=== PATIENT | male | born 1975 | race Caucasian/White ===

== ENCOUNTER → 2018-01-25 11:02 | Outpatient (CLI) | payer OTHER, SELFPAY ==
--- NOTE | 2018-01-25 | DI.RAD.S_ITS ---
PROCEDURE: XR KNEE LT 3V INDICATIONS: Pain in left knee TECHNIQUE: 3 views of the knee were acquired. COMPARISON: None. FINDINGS: Bones: No fractures or dislocations. No suspicious bony lesions. Soft tissues: Mild to moderate joint effusion. No suspicious soft tissue calcifications. IMPRESSION: Mild to moderate joint effusion. No visualized acute fracture or dislocation. However, if clinical concern and/or pain persist, short interval imaging followup in 7-10 days is recommended, as occult injury cannot be definitively excluded. Dictated by: Susanna Beach M.D. on 01/25/2018 at 13:57 Approved by: Susanna Beach M.D. on 01/25/2018 at 13:58
--- NOTE | 2018-01-25 | DI.RAD.S_ITS ---
PROCEDURE: XR CHEST 2V INDICATIONS: shortness of breath TECHNIQUE: 2 views of the chest were acquired. COMPARISON: None. FINDINGS: Surgical changes and devices: None. Lungs and pleura: No pleural effusions or pneumothorax. Lungs are clear. Mediastinum: Mediastinal contours are normal. Heart size is normal. Bones and chest wall: No suspicious bony abnormalities. Soft tissues appear unremarkable. IMPRESSION: No acute pulmonary process. Dictated by: Susanna Beach M.D. on 01/25/2018 at 13:56 Approved by: Susanna Beach M.D. on 01/25/2018 at 13:57
== END ==
PROVIDERS: PCP Family Medicine; Visit Provider Family Medicine
DX: R06.02 Shortness of breath (principal); M25.562 Pain in left knee; M25.462 Effusion, left knee
CPT/HCPCS: 71046; 73562

== ENCOUNTER → 2018-05-12 14:59 | Outpatient (CLI) | payer OTHER, SELFPAY ==
--- NOTE | 2018-05-18 08:08 | PM.PFT.1 ---
Pulmonary Function Test Referral & Results Date Patient Seen: 05/12/18 Requesting provider: Bradley Martinez Indication: Dyspnea upon exertion Results: The spirometry demonstrates an FVC of 3.74 L which is 72% of predicted. The FEV1 was measured at 2.96 L which is 72% of predicted. The FEV1/FVC ratio was 79 which is 99% of predicted. Following the administration of bronchodilator there was a 17% improvement in FEV1 and 65% improvement in FEF 25-75%. Lung volumes show an SVC of 3.83 L which is 76% of predicted. The diffusing capacity was measured at 29.77 which is 92% of predicted. The maximum voluntary ventilation was reduced Interpretation: This study demonstrates mild obstructive lung disease based on reduction in FEV1. There is evidence of significant benefit following bronchodilator based on improvement in FEV1 and FEF 25-75% as above. There is mild reduction in lung volumes suggesting mild restrictive lung disease Clinical correlation suggested
== END ==
PROVIDERS: PCP Family Medicine; Visit Provider Internal Medicine
DX: R06.09 Other forms of dyspnea (principal)
CPT/HCPCS: 94060; 94726; 94729

== ENCOUNTER → 2018-05-15 17:30 | Outpatient (CLI) | payer OTHER, SELFPAY ==
--- NOTE | 2018-05-15 17:32 | DI.MRI.S_ITS ---
PROCEDURE: MR KNEE LT WO CON INDICATIONS: LEFT KNEE PAIN TECHNIQUE: Noncontrast sagittal PD fast spin echo and T2 fast spin echo with fat saturation, sagittal 3-D FLASH with fat saturation; coronal T1 spin echo and PD fast spin echo with fat saturation, and axial PD fast spin echo with fat saturation through the knee. COMPARISON: [facility], CR, XR KNEE LT 3V, 01/25/2018, 11:27. FINDINGS: Image quality: Excellent. Menisci: Linear high signal intensity horizontally traverses the posterior horn medial meniscus, demonstrating inferior articular surface extension. There is radial tearing of the free edge of the medial meniscal body. Lateral meniscus is intact. Cruciate ligaments: The anterior and posterior cruciate ligaments appear intact. Medial structures: The medial collateral ligament appears intact. Visualized portions of the pes anserinus tendons appear normal. No abnormal bursal fluid. Lateral structures: The lateral collateral ligament, long and short heads of the biceps femoris tendon appear intact. The popliteus tendon appears normal. Iliotibial band appears normal. Anterior structures: The quadriceps and patellar tendons appear intact. There is mild T2 signal elevation within the patellar tendon at the patellar origin. Patellar alignment is normal. No femoral trochlear dysplasia or ventral trochlear prominence. No edema in the infrapatellar fat pad. Bones and cartilage: No bone marrow contusions or fractures. There is mild articular cartilage fibrillation overlying the patellar apex. Mild diffuse articular cartilage loss overlies the weightbearing aspects of the medial femoral condyle and medial tibial plateau. Joint space: There is physiologic knee joint fluid. No Dominguez's cyst. Normal appearing synovial plicae are incidentally noted. IMPRESSION: 1. Medial meniscal tear. 2. Medial and patellofemoral compartment articular cartilage loss. 3. Mild patellar tendinitis. Dictated by: Laurel Adan M.D. on 05/16/2018 at 8:41 Approved by: Laurel Adan M.D. on 05/16/2018 at 8:46
== END ==
PROVIDERS: PCP Family Medicine; Visit Provider Family Medicine
DX: M25.562 Pain in left knee (principal); S83.242A Other tear of medial meniscus, current injury, left knee, initial encounter; M76.52 Patellar tendinitis, left knee
CPT/HCPCS: 73721

== ENCOUNTER → 2018-07-18 13:37 | Outpatient (CLI) | payer OTHER, SELFPAY ==
--- NOTE | 2018-07-18 | DI.CT.S_ITS ---
PROCEDURE: CT CHEST WO CON INDICATIONS: DYSPNEA ON EXERTION. TECHNIQUE: Noncontrast 5 mm thick sections acquired from the pulmonary apices to the posterior costophrenic angles. 7 mm thick coronal and sagittal MIP reformats were then acquired. For radiation dose reduction, the following was used: automated exposure control, adjustment of mA and/or kV according to patient size. COMPARISON: None. FINDINGS: Image quality: Excellent. Lungs and pleura: No acute air space opacities. No pleural effusions or pneumothorax. Central and peripheral airways are patent and normal in caliber. Mediastinum: Heart size is normal. No pericardial effusion. No mediastinal adenopathy by size criteria. Thoracic aorta and central pulmonary arteries are normal in size. Esophagus is normal in caliber. No hiatal hernia. Bones and chest wall: No suspicious bony lesions. No vertebral body compression fractures. No axillary or supraclavicular adenopathy by size criteria. Thyroid gland appears normal. Abdomen: Visualized upper abdominal solid organs and bowel loops appear normal in the absence of contrast. IMPRESSION: Normal for age, source of current dyspnea on exertion symptoms is not seen. Dictated by: Alan Canchola M.D. on 07/18/2018 at 15:59 Approved by: Alan Canchola M.D. on 07/18/2018 at 16:00
== END ==
PROVIDERS: PCP Family Medicine; Visit Provider Internal Medicine
DX: R06.09 Other forms of dyspnea (principal)
CPT/HCPCS: 71250

== ENCOUNTER → 2018-09-07 08:54 | Outpatient (CLI) | payer OTHER, SELFPAY ==
--- NOTE | 2018-09-07 10:16 | P.PCN_ITS ---
Cardiac Stress Test Report Referral & Results Date Patient Seen: 09/07/18 Requesting provider: Bradley Martinez Indication: Preop Rest ECG: Unremarkable Procedure Note: After both written and verbal informed consent the patient had an IV started by the diagnostic imaging RN and then was hooked up to the treadmill monitoring system. The patient was placed on the treadmill at 1 mile an hour with no elevation and was then injected with the Barb scan material. The Cardiolite was then immediately administered. The patient spent an additional 2-3 minutes on the treadmill before being returned to the [facility] in the supine position. The patient had a normal response to all infused materials. Impression: Normal response to materials infused as above Please see perfusion imaging report for details regarding possible ischemia Please note: Actual ECG tracings can be found in the PACS system.
--- NOTE | 2018-09-11 15:49 | DI.NM.S_ITS ---
DATE OF SERVICE: STUDY TYPE: Two-day pharmaceutical nuclear stress test. RADIOISOTOPES: 26.2 mCi Tc-99m used on rest day and 25.5 mCi of Tc-99m used as a stress dose on stress test day. CLINICAL HISTORY: The patient is getting this stress test to evaluate dyspnea on exertion. SYMPTOMS: No angina during the study. ECG: Normal sinus rhythm with no ST-T changes addressed. No ischemic changes with Lexiscan. No ectopy during the study. PERFUSION IMAGES: No perfusion evidence of ischemia or infarction based on supine and prone images at stress and supine at rest. GATED IMAGES: Normal left ventricular size, wall motion, and systolic function (post-stress EF 69%). No transient ischemic dilatation (TID ratio 1.08). Lung- to-heart ratio is 0.34, normal. SUMMARY: Low-risk, normal pharmaceutical nuclear perfusion stress test. 1. No perfusion evidence of ischemia or infarction. 2. Normal left ventricular size, wall motion, and systolic function (post- stress EF 69%). 3. No ECG evidence of ischemia. 4. No angina during the study. 5. No prior nuclear stress test available for comparison. Ricco Figueroa - GAURAV/fn/ts doc#: [id number]/job#: [id number] dd: 09/08/2018 12:59:00 dt: 09/09/2018 06:47:00 DICTATING /COPIES TO: Ann Yeboah MD COPIES MNE: AYANA
== END ==
PROVIDERS: Visit Provider Internal Medicine
DX: R06.09 Other forms of dyspnea (principal)
CPT/HCPCS: 78452; 93016; 93017; 93018; A9502; J2785

== ENCOUNTER → 2019-09-20 12:04 | Outpatient (CLI) | payer OTHER, MEDICAID, SELFPAY ==
[2019-09-20 13:53] LABS: BUN Creatinine Ratio 21.3 (6-22); Blood Urea Nitrogen 20 mg/dL (9-20); Carbon Dioxide 29 mmol/L (22-32); Chloride 105 mmol/L (98-107); Estimated Glomerular Filt Rate > 60.0 mL/min (>60); Glucose 102 mg/dL (70-100); HEMOLYSIS < 15 (0-50); Potassium 4.1 mmol/L (3.4-5.1); Sodium 140 mmol/L (137-145)
[2019-09-20 14:11] LABS: Free T3, Triiodothyronine Free 3.32 pg/mL (2.77-5.27); Free T4, Direct Thyroxine 1.79 ng/dL (0.78-2.19)
[2019-09-21 18:07] LABS: Anti Thyroglobulin Antibody 134.3 IU/mL (0.0-0.9); Thyroid Peroxidase Antibodies 378 IU/mL (0-34)
== END ==
PROVIDERS: PCP Student in an Organized Health Care Education/Training Program; Referring Provider Student in an Organized Health Care Education/Training Program; Visit Provider Student in an Organized Health Care Education/Training Program
DX: E03.9 Hypothyroidism, unspecified (principal); I10 Essential (primary) hypertension
CPT/HCPCS: 36415; 80048; 84439; 84443; 84481; 86376; 86800

== ENCOUNTER → 2019-09-25 15:00 | Outpatient (CLI) | payer OTHER, MEDICAID, SELFPAY ==
--- NOTE | 2019-09-25 15:01 | DI.CT.S_ITS ---
PROCEDURE: CT CHEST HIGH RESOLUTION INDICATIONS: Restrictive lung disease TECHNIQUE: Noncontrast 1.0 and 5.0 mm thick contiguous axial sections from the pulmonary apex to the posterior costophrenic angles, with 7 mm thick coronal and sagittal MIP reformats. 1 mm thick dynamic expiratory images acquired through the upper, mid, and lower lungs. 1.0 mm thick axial sections acquired from the cristin to the posterior costophrenic angles in the prone end-inspiration position. For radiation dose reduction, the following was used: automated exposure control, adjustment of mA and/or kV according to patient size. COMPARISON: None. FINDINGS: Image quality: Excellent. Lungs: No evidence of pneumonitis or fibrosis. There is currently no sign of chronic bronchitis or bronchiectasis. Pleura: No pleural effusions or pneumothorax. Mediastinum: Heart size is normal. No pericardial effusion. Thoracic aorta and central pulmonary arteries are normal in size. Esophagus is normal in caliber. Bones and chest wall: No suspicious bony lesions. No vertebral body compression fractures. Abdomen: Visualized upper abdominal solid organs and bowel loops appear normal. IMPRESSION: Normal examination, source of reported restrictive lung disease is not found. Dictated by: Alan Canchola M.D. on 09/25/2019 at 18:08 Approved by: Alan Canchola M.D. on 09/25/2019 at 18:09
== END ==
PROVIDERS: PCP Student in an Organized Health Care Education/Training Program; Referring Provider Student in an Organized Health Care Education/Training Program; Visit Provider Student in an Organized Health Care Education/Training Program
DX: J98.4 Other disorders of lung (principal)
CPT/HCPCS: 71250

== ENCOUNTER → 2019-10-31 11:17 | Outpatient (CLI) | payer OTHER, MEDICAID, SELFPAY ==
[2019-11-01 09:41] LABS: Mumps Virus IgG Antibody 37.7 AU/mL (Immune >10.9); Rubeola Measles IgG > 300.0 AU/mL (Immune >16.4); Varicella IgG Antibody 2300 index (Immune >165)
== END ==
PROVIDERS: PCP Student in an Organized Health Care Education/Training Program; Referring Provider Student in an Organized Health Care Education/Training Program; Visit Provider Student in an Organized Health Care Education/Training Program
DX: Z02.1 Encounter for pre-employment examination (principal)
CPT/HCPCS: 36415; 86615; 86735; 86762; 86765; 86787

== ENCOUNTER → 2020-07-16 14:28 | Outpatient (CLI) | payer OTHER, MEDICAID, SELFPAY ==
[2020-07-16 15:34] LABS: COVID19 -Nasal RAPID Negative (Negative)
== END ==
PROVIDERS: PCP Student in an Organized Health Care Education/Training Program; Visit Provider Family Medicine
DX: R11.0 Nausea (principal); R11.10 Vomiting, unspecified; R53.83 Other fatigue; Z20.822 Contact with and (suspected) exposure to COVID-19
CPT/HCPCS: 87635

== ENCOUNTER → 2020-10-09 13:45 | Outpatient (CLI) | payer OTHER, MEDICAID, SELFPAY ==
[2020-10-09 14:48] LABS: BUN Creatinine Ratio 17.5 (6-22); Blood Urea Nitrogen 14 mg/dL (9-20); Calcium 9.5 mg/dL (8.4-10.2); Carbon Dioxide 28 mmol/L (22-32); Chloride 106 mmol/L (98-107); Estimated Glomerular Filt Rate > 60.0 mL/min (>60); Glucose 86 mg/dL (70-100); HEMOLYSIS 18 (0-50); Sodium 140 mmol/L (137-145)
[2020-10-09 14:49] LABS: Potassium 3.8 mmol/L (3.4-5.1)
[2020-10-09 15:20] LABS: TSH w/ Reflex to FT4 1.94 uIU/mL (0.47-4.68)
== END ==
PROVIDERS: PCP Student in an Organized Health Care Education/Training Program; Referring Provider Student in an Organized Health Care Education/Training Program; Visit Provider Student in an Organized Health Care Education/Training Program
DX: E06.3 Autoimmune thyroiditis (principal); I10 Essential (primary) hypertension
CPT/HCPCS: 36415; 80048; 84443

== ENCOUNTER → 2021-05-05 14:10 | Outpatient (CLI) | payer OTHER, MEDICAID, SELFPAY ==
[2021-05-05 16:28] LABS: BUN Creatinine Ratio 14.7 (6-22); Blood Urea Nitrogen 17 mg/dL (9-20); Calcium 9.1 mg/dL (8.4-10.2); Carbon Dioxide 31 mmol/L (22-32); Chloride 100 mmol/L (98-107); Estimated Glomerular Filt Rate > 60.0 mL/min (>60); Glucose 82 mg/dL (70-100); HEMOLYSIS < 15 (0-50); Potassium 4.1 mmol/L (3.4-5.1); Sodium 135 mmol/L (137-145)
[2021-05-05 16:59] LABS: TSH w/ Reflex to FT4 4.87 uIU/mL (0.47-4.68)
[2021-05-05 17:57] LABS: Free T4, Direct Thyroxine 1.94 ng/dL (0.78-2.19)
== END ==
PROVIDERS: PCP Student in an Organized Health Care Education/Training Program; Referring Provider Student in an Organized Health Care Education/Training Program; Visit Provider Student in an Organized Health Care Education/Training Program
DX: I10 Essential (primary) hypertension (principal); E06.3 Autoimmune thyroiditis; F43.22 Adjustment disorder with anxiety
CPT/HCPCS: 36415; 80048; 84439; 84443

== ENCOUNTER → 2021-06-08 08:52 | Outpatient (CLI) | payer OTHER, MEDICAID, SELFPAY ==
--- NOTE | 2021-06-08 08:54 | DI.CT.S_ITS ---
PROCEDURE: CT HEAD/BRAIN WO CON INDICATIONS: Post-concussive headache TECHNIQUE: Noncontrast 4.5 mm thick angled axial sections acquired from the foramen magnum to the vertex, with coronal and sagittal reformats. For radiation dose reduction, the following was used: automated exposure control, adjustment of mA and/or kV according to patient size. COMPARISON: None. FINDINGS: Image quality: Excellent. CSF spaces: Basal cisterns are patent. No extra-axial fluid collections. Ventricles are normal in size and shape. Brain: No midline shift. No intracranial masses or hemorrhage. Sams-white matter interface is normal. Skull and face: Calvarium and visualized facial bones are intact, without suspicious lesions. Sinuses: Visualized sinuses and mastoids are clear. IMPRESSION: No acute intracranial disease process. Dictated by: Katina Alberto MD, PhD on 06/08/2021 at 9:20 Approved by: Katina Alberto MD, PhD on 06/08/2021 at 9:21
== END ==
PROVIDERS: PCP Student in an Organized Health Care Education/Training Program; Referring Provider Student in an Organized Health Care Education/Training Program; Visit Provider Student in an Organized Health Care Education/Training Program
DX: F07.81 Postconcussional syndrome (principal)
CPT/HCPCS: 70450

== ENCOUNTER → 2021-07-15 09:38 | Outpatient (CLI) | payer OTHER, MEDICAID, SELFPAY ==
[2021-07-15 11:04] LABS: COVID19 -Nasal RAPID Negative (Negative)
== END ==
PROVIDERS: PCP Student in an Organized Health Care Education/Training Program; Visit Provider Surgery
DX: Z20.822 Contact with and (suspected) exposure to COVID-19 (principal); Z01.812 Encounter for preprocedural laboratory examination
CPT/HCPCS: 87635; C9803

== ENCOUNTER 2021-07-16 09:55 | Day surgery (SDC) | payer OTHER, MEDICAID, SELFPAY ==
[2021-07-16] VITALS (9 sets, daily range): BP systolic 118–140; BP diastolic 78–95; PULSE 59–76; RESP 12–16; TEMP 36.1–36.6; O2SAT 97–99; BMI 29.0
--- NOTE | 2021-07-16 | PATH_ITS ---
[facility] Accession Number: [id number] . 01 Material submitted: . PART A: cecum - CECAL PART B: colon - ASCENDING PART C: sigmoid colon - SIGMOID . 01 Diagnosis: A. Cecum, Biopsy: Tubular adenoma. . B. Ascending Colon, Biopsy: Tubular adenoma. . C. Sigmoid Colon, Biopsy: Hyperplastic polyp, two fragments. MRV 07/21/2021 1332 Local . 01 Electronically signed: . Mag Garcia MD, Pathologist NPI- [id number] . 01 Gross description: . Part A: CECAL: Received in formalin are multiple fragment(s) of allen, soft tissue measuring 0.6 x 0.2 x 0.1 cm in aggregate submitted entirely in 1 cassette(s) Part B: ASCENDING: Received in formalin is 1 fragment(s) of allen, soft tissue measuring 0.5 x 0.4 x 0.2 cm submitted entirely in 1 cassette(s) Part C: SIGMOID: Received in formalin are 2 fragment(s) of allen, soft tissue measuring 0.3 x 0.3 x 0.3 cm to 0.2 x 0.2 x 0.2 cm submitted entirely in 1 cassette(s) /CPE 07/18/2021 0302 Local . 01 Pathologist provided ICD-10: D12.0, D12.2 . 01 CPT . 669725, 436505, 412458 Specimen Comment: A courtesy copy of this report has been sent to [phone] Performed at: 01 [facility] [address] [place] [address] [address] [facility], [place], [place] [id number] MD Axel Porter MD Phone: [phone]
[2021-07-16] MEDS: LACTATED RINGERS 1,000 ML 42 ML IV (10:25)
--- NOTE | 2021-07-16 11:04 | PM.HP.1 ---
History of Present Illness History of Present Illness Date Patient Seen: 07/16/21 Time Patient Seen: 11:04 Chief complaint: SDC Narrative: Ricco is a 38-year-old man who has never had a colonoscopy. He is here for colon cancer screening Patient History Family & Social History Social History: household members spouse Tobacco & Substance use: Smoking Status Never smoker alcohol intake current alcohol intake frequency a few times a week Substance Use Type marijuana Meds Home Medications and Allergies Home Medications Medication Instructions Recorded Confirmed Type albuterol sulfate 90 mcg/actuation 2 puff INHALATION Q6H 09/20/19 07/16/21 History aerosol inhaler sildenafil 100 mg tablet (Viagra) 100 mg PO DAILY 09/20/19 07/16/21 History albuterol sulfate 2.5 mg (3 mL) INHALATION Q4-6H PRN 11/19/19 07/16/21 Rx #180 ml budesonide 0.5 mg/2 mL suspension 0.5 mg (2 mL) INHALATION BID #60 ml 11/19/19 07/16/21 Rx for nebulization verapamil 360 mg 24 hr 360 mg PO DAILY #90 cap 07/09/20 07/16/21 Rx capsule,extended release budesonide-formoterol HFA 160 2 puff INHALATION BID #30.6 g 08/13/20 07/16/21 Rx mcg-4.5 mcg/actuation aerosol inhaler (Symbicort) levothyroxine 175 mcg tablet 175 mcg PO DAILY #90 tab 10/20/20 07/16/21 Rx benazepril 40 mg tablet 40 mg PO DAILY #90 tab 01/14/21 07/16/21 Rx montelukast 10 mg tablet 10 mg PO BEDTIME #90 tab 01/14/21 07/16/21 Rx diazepam 5 mg tablet 5 mg PO DAILY #14 tab 04/27/21 07/16/21 Rx tiotropium bromide 2.5 2 puff INHALATION BEDTIME #4 g 05/14/21 07/16/21 Rx mcg/actuation mist for inhalation (Spiriva Respimat) peg 3350-electrolytes 236 240 ml PO Q10M #4000 ml 07/06/21 Rx gram-22.74 gram-6.74 gram-5.86 gram solution (Golytely) potassium 1 tab PO DAILY 07/16/21 07/16/21 History Allergies Allergy/AdvReac Type Severity Reaction Status Date / Time No Known Drug Allergies Allergy Unverified 05/12/21 09:08 Exam Vital Signs (past 8 hours): - 07/16/21 10:11 Temperature 97.5 F L Pulse Rate 65 Respiratory Rate 16 Blood Pressure 133/93 H Pulse Oximetry 99 Oxygen Delivery Method Room Air Const General: healthy appearing Resp Effort & Inspection: normal respiratory effort Assessment & Plan Assessment and plan (1) Colon cancer screening: Status: Acute Plan Risks, benefits and rationale for colonoscopy reviewed. He would like to proceed. COVID-19 COVID-19 status: Negative Result date/Date tested (Pos, Neg/Pending): 07/15/21 Time Spent With Patient Critical Care time: I spent a total of [] minutes of critical care time on this patient's care today; this time is exclusive of procedural time.
[2021-07-16] MEDS: fentaNYL 250 MCG/5 ML INJ 100 MCG IV (11:19)
[2021-07-16] MEDS: MIDAZOLAM 5 MG/5 ML VIAL 4 MG IV (11:20)
--- NOTE | 2021-07-16 11:32 | PM.OP.COLON ---
Operative Date/Time/Diagnoses Date of procedure: 07/16/21 Time of procedure: 11:32 Pre-op diagnosis: Colon cancer screening Post-op diagnosis: same Procedure & Clinicians Study performed: Colonoscopy Same procedure as scheduled: Yes Surgeon: Riki Melgar Procedure Notes Procedure in detail: Surgeon: Riki Melgar MD Procedure: The patient was brought to the endoscopy suite, placed in left lateral decubitus position. The patient was connected to monitoring devices. A time-out was performed. Sedation was administered. Once the patient was adequately sedated, a digital rectal exam was performed and was normal. The scope was then inserted and advanced to the cecum where the appendiceal orifice was identified and photographed. The scope was then slowly withdrawn over greater than 6 minutes. Mucosa was thoroughly inspected. There was a 6-7 mm polyp in the cecum removed with a cold snare. There was a small roughly 5 mm polyp in the ascending colon removed with cold forceps. There was a small roughly 5 mm polyp in the sigmoid colon removed with forceps. The scope was retroflexed in the rectum. There were some internal hemorrhoids but the distal rectum was otherwise normal. The scope was straightened and removed. The patient was awakened and brought to recovery. Versed: 5 mg Fentanyl: 125 mcg EBL: 5 mL Findings: 6 mm polyp in the cecum, 5 mm polyp in the ascending colon, 5 mm polyp in the sigmoid colon. Scope withdrawal time: 15 Sedation minutes: 12 Post-procedure Recommendations: Will call with biopsy results Disposition: PACU
== END 2021-07-16 12:20 | disposition home or self-care (01) ==
PROVIDERS: PCP Student in an Organized Health Care Education/Training Program; Referring Provider Surgery; Visit Provider Surgery
PROC: 0DJD8ZZ Inspection of Lower Intestinal Tract, Via Natural or Artificial Opening Endoscopic (ICD-10-PCS; CPT 45378; principal; 2021-07-16 10:45)
DX: Z12.11 Encounter for screening for malignant neoplasm of colon (principal); D12.0 Benign neoplasm of cecum; D12.2 Benign neoplasm of ascending colon
CPT/HCPCS: 45385; 45380; 99152; J2250; J3010

== ENCOUNTER 2021-11-06 10:07 | Emergency (ER) | payer OTHER, MEDICAID, SELFPAY ==
[2021-11-06 10:22] VITALS: BP 171/99; PULSE 69; RESP 19; TEMP 36.9; O2SAT 99; BMI 29.3
--- NOTE | 2021-11-06 10:26 | DI.RAD.S_ITS ---
PROCEDURE: XR CHEST 2V INDICATIONS: cough TECHNIQUE: 2 views of the chest were acquired. COMPARISON: CT, CT CHEST HIGH RESOLUTION, 09/25/2019, 15:01. [facility], CR, XR CHEST 2V, 01/25/2018, 11:27. FINDINGS: Surgical changes and devices: None. Lungs and pleura: No consolidation. No pleural effusions or pneumothorax. Mediastinum: Mediastinal contours are normal. Heart size is normal. Bones and chest wall: No suspicious bony abnormalities. Soft tissues appear unremarkable. IMPRESSION: No consolidation to suggest pneumonia. Dictated by: Zi Be M.D. on 11/06/2021 at 10:42 Approved by: Zi Be M.D. on 11/06/2021 at 10:45
--- NOTE | 2021-11-06 11:04 | ED.GENADULT ---
HPI - General Adult General Chief complaint: Shortness of Breath/Dyspnea Stated complaint: sent from [facility], worsening SOB from smoke Time Seen by Provider: 11/06/21 10:29 Source: patient Mode of arrival: Family Vehicle History of Present Illness HPI narrative: 38-year-old male. History of asthma. For the past several days secondary to the smoke that has been in the air he has had coughing and shortness of breath. No fevers. He has been doing his inhalers at home. He also has steroids at home. He is currently on 60 mg of prednisone. This is being directed by his primary doctor. He thought that this morning things were getting somewhat worsening went to the walk-in clinic. He then came to the emergency department for further evaluation. Related Data Home Medications Medication Instructions Recorded Confirmed albuterol sulfate 90 mcg/actuation 2 puff inhalation Q6H 09/20/19 07/16/21 aerosol inhaler sildenafil 100 mg tablet (Viagra) 100 mg PO DAILY 09/20/19 07/16/21 potassium 1 tab PO DAILY 07/16/21 07/16/21 Previous Rx's Medication Instructions Recorded albuterol sulfate 2.5 mg/3 mL 2.5 mg (3 mL) inhalation Q4-6H PRN 11/19/19 (0.083 %) solution for nebulization shortness of breath or wheezing #180 mL budesonide 0.5 mg/2 mL suspension 0.5 mg (2 mL) inhalation BID #60 mL 11/19/19 for nebulization budesonide-formoterol HFA 160 2 puff inhalation BID #30.6 grams 08/13/20 mcg-4.5 mcg/actuation aerosol inhaler (Symbicort) benazepril 40 mg tablet 40 mg PO DAILY #90 tabs 01/14/21 montelukast 10 mg tablet 10 mg PO BEDTIME #90 tabs 01/14/21 diazepam 5 mg tablet 5 mg PO DAILY anxiety #14 tabs 04/27/21 tiotropium bromide 2.5 2 puff inhalation BEDTIME #4 grams 05/14/21 mcg/actuation mist for inhalation (Spiriva Respimat) peg 3350-electrolytes 236 240 ml PO Q10M #4,000 mL 07/06/21 gram-22.74 gram-6.74 gram-5.86 gram solution (Golytely) verapamil 360 mg 24 hr 360 mg PO DAILY #90 caps 07/27/21 capsule,extended release levothyroxine 175 mcg tablet 175 mcg PO DAILY #90 tabs 10/26/21 prednisone 20 mg tablet 60 mg PO DAILY #50 tabs 11/03/21 Allergies Allergy/AdvReac Type Severity Reaction Status Date / Time No Known Drug Allergies Allergy Verified 11/06/21 10:26 Review of Systems Constitutional Constitutional: Reports system reviewed and no additional complaints, except as documented Cardiovascular Cardiovascular: Reports system reviewed and no additional complaints, except as documented Respiratory Respiratory: Reports system reviewed and no additional complaints, except as documented Integumentary/Breasts Skin/Breast: Reports system reviewed and no additional complaints, except as documented Hematologic/Lymphatic On Anticoagulants: No Patient History Medical History Asthma Social History household members: spouse Smoking Status: Never smoker alcohol intake: current Smoking Status: Never smoker alcohol intake frequency: a few times a week Substance Use Type: marijuana Exam Initial Vital Signs Initial Vital Signs: Vital Signs Temperature 98.5 F 11/06/21 10:22 Pulse Rate 69 11/06/21 10:22 Respiratory Rate 19 11/06/21 10:22 Blood Pressure 171/99 H 11/06/21 10:22 Pulse Oximetry 99 11/06/21 10:22 Oxygen Delivery Method 11/06/21 10:22 Resp Effort & Inspection: normal respiratory effort Auscultation: clear to auscultation bilaterally Cardio Rate: regular rate Rhythm: regular rhythm Extrem General: normal to inspection Course Orders Ordered: ED Orders 11/06/21 10:26 XR chest 2V Stat Vital Signs Vital signs: Vital Signs - 8 hr 11/06/21 10:22 Temperature 98.5 F Pulse Rate 69 Respiratory Rate 19 Blood Pressure 171/99 H Pulse Oximetry 99 Oxygen Delivery Method Room Air Medical Decision Making Imaging Data Chest x-ray: Radiologist's Impression: [address] [address] XRay Report Signed Patient: Ricco Figueroa MR#: [id number] : 1975 Acct:[id number] Age/Sex: 46 / M Date of Service: 11/06/21 Loc: ED Accession Number: [id number] ?? Procedure: XR chest 2V Ordering Provider: Dean Marrufo D.O. PROCEDURE:? XR CHEST 2V ? INDICATIONS:? cough ? TECHNIQUE:? 2 views of the chest were acquired.? ? COMPARISON:? CT, CT CHEST HIGH RESOLUTION, 09/25/2019, 15:01.? [facility], CR, XR CHEST 2V, 01/25/2018, 11:27. ? FINDINGS:? ? Surgical changes and devices:? None.? ? Lungs and pleura:? No consolidation.? No pleural effusions or pneumothorax.? ? Mediastinum:? Mediastinal contours are normal.? Heart size is normal.? ? Bones and chest wall:? No suspicious bony abnormalities.? Soft tissues appear unremarkable.? ? IMPRESSION:? No consolidation to suggest pneumonia. ? ? Dictated by: Zi Be M.D. on 11/06/2021 at 10:42 ? ? Approved by: Zi Be M.D. on 11/06/2021 at 10:45?? MDM Narrative Medical decision making narrative: Lungs are clear, chest x-ray is unremarkable, no signs of pneumonia. No indication for antibiotics. He is currently on steroids. He is nebulizers and inhalers at home. Will have him continue all of these medications as they are being managed by his primary provider. He was given return precautions. He expressed understanding and agreement. Discharge Plan Departure Patient Disposition: Home Clinical Impression: Cough Instructions: DI for Cough -- Adult Activity Restrictions/Additional Instructions: I do recommend that you continue with the steroids under the direction of your primary doctor. You can also use your inhalers and nebulizers at home. Contact your primary doctor for follow-up. Return to the emergency department for any new or worsening symptoms. Prescriptions: No Action budesonide-formoterol [Symbicort] 160-4.5 mcg/actuation HFA aerosol inhaler 2 puff INHALATION BID Qty: 30.6 3RF benazepril 40 mg tablet 40 mg PO DAILY Qty: 90 2RF montelukast 10 mg tablet 10 mg PO BEDTIME Qty: 90 3RF Spiriva Respimat 2.5 mcg/actuation mist 2 puff INHALATION BEDTIME Qty: 4 11RF peg 3350-electrolytes [Golytely] 236-22.74-6.74 -5.86 gram recon soln 240 ml PO Q10M Qty: 4000 0RF Rx Instructions: Take as directed by Physician verapamil 360 mg capsule,ext rel. pellets 24 hr 360 mg PO DAILY Qty: 90 2RF levothyroxine 175 mcg tablet 175 mcg PO DAILY Qty: 90 1RF prednisone 20 mg tablet 60 mg PO DAILY Qty: 50 0RF Rx Instructions: Take 60mg of prednisone daily until feeling 20-25% better. Call office at that time for taper instructions. albuterol sulfate 2.5 mg /3 mL (0.083 %) solution for nebulization 2.5 mg INHALATION Q4-6H PRN (Reason: shortness of breath or wheezing) Qty: 180 11RF budesonide 0.5 mg/2 mL suspension for nebulization 0.5 mg INHALATION BID Qty: 60 11RF diazepam 5 mg tablet 5 mg PO DAILY Qty: 14 0RF sildenafil [Viagra] 100 mg tablet 100 mg PO DAILY Rx Instructions: administer 30 minutes to 4 hours before activity albuterol sulfate 90 mcg/actuation HFA aerosol inhaler 2 puff INHALATION Q6H potassium 1 tab PO DAILY Referrals: Modesto Arenas MD [Primary Care Provider] -
== END 2021-11-06 11:23 | disposition home or self-care (01) ==
PROVIDERS: Emergency Provider Emergency Medicine; PCP Student in an Organized Health Care Education/Training Program
DX: R05.9 Cough, unspecified (principal); R06.02 Shortness of breath
CPT/HCPCS: 71046; 99283

== ENCOUNTER → 2022-09-17 13:46 | Outpatient (CLI) | payer OTHER, MEDICAID, SELFPAY ==
[2022-09-17 14:11] LABS: Add Manual Diff / Slide Review NO; Basophils Absolute Auto 100 /uL (0-100); Basophils Percent Auto 1.2 % (0-2); Eosinophils Absolute Auto 100 /uL (0-450); Hemoglobin 16.5 g/dL (13.5-17.5); Lymphocytes Absolute Auto 1300 /uL (1100-4500); Lymphocytes Percent Auto 16.6 % (25-40); Mean Corpuscular Hemoglobin 30.2 PG (26-34); Mean Corpuscular Volume 86.1 fL (80-100); Monocytes Absolute Auto 600 /uL (0-900); Monocytes Percent Auto 8.5 % (3-14); Neutrophils Absolute Auto 5500 /uL (1500-7000); Neutrophils Percent Auto 72.7 % (50-75); Platelet Count 209 X10^3/uL (150-400); Red Blood Cell Count 5.46 X10^6/uL (4.5-5.9); Red Cell Distribution Width 13.3 % (11.6-14.8); White Blood Cell Count 7.5 X10^3/uL (4.5-11.0)
[2022-09-17 14:43] LABS: Erythrocyte Sedimentation Rate 3 MM/HR (0-15)
[2022-09-17 14:47] LABS: Alanine Aminotransferase 44 IU/L (<50); Albumin 4.4 g/dL (3.5-5.0); Albumin Globulin Ratio 1.4 (1.0-2.8); Alkaline Phosphatase 88 U/L (38-126); Aspartate Aminotransferase 31 IU/L (17-59); Bilirubin Total 0.6 mg/dL (0.2-1.3); Blood Urea Nitrogen 10 mg/dL (9-20); Calcium 9.2 mg/dL (8.4-10.2); Carbon Dioxide 31 mmol/L (22-32); Chloride 102 mmol/L (98-107); Estimated Glomerular Filt Rate > 60 mL/min (>60); Globulin 3.2 g/dL (1.7-4.1); Glucose 94 mg/dL (70-100); HEMOLYSIS < 15 (0-50); Potassium 3.9 mmol/L (3.4-5.1); Sodium 139 mmol/L (137-145); Total Protein 7.6 g/dL (6.3-8.2)
[2022-09-17 14:58] LABS: Free T4, Direct Thyroxine 1.63 ng/dL (0.78-2.19)
[2022-09-17 15:12] LABS: Thyroid Stimulating Hormone 1.34 uIU/mL (0.47-4.68)
[2022-09-21 19:35] LABS: ANA Screen, IFA Negative (.)
== END ==
PROVIDERS: PCP Pediatrics; Referring Provider Pediatrics; Visit Provider Pediatrics
DX: F33.9 Major depressive disorder, recurrent, unspecified (principal); G43.909 Migraine, unspecified, not intractable, without status migrainosus; R56.9 Unspecified convulsions
CPT/HCPCS: 36415; 80053; 84439; 84443; 84481; 85025; 85651; 86038

== ENCOUNTER → 2022-10-04 08:30 | Outpatient (CLI) | payer OTHER, MEDICAID, SELFPAY ==
--- NOTE | 2022-10-04 08:31 | DI.CT.S_ITS ---
PROCEDURE: CT CHEST HIGH RESOLUTION INDICATIONS: Restrictive lung disease, toxic exposure TECHNIQUE: Noncontrast 1.0 and 5.0 mm thick contiguous axial sections from the pulmonary apex to the posterior costophrenic angles, with 7 mm thick coronal and sagittal MIP reformats. 1 mm thick dynamic expiratory images acquired through the upper, mid, and lower lungs. 1.0 mm thick axial sections acquired from the cristin to the posterior costophrenic angles in the prone end-inspiration position. For radiation dose reduction, the following was used: automated exposure control, adjustment of mA and/or kV according to patient size. COMPARISON: [facility], CT, CT CHEST WO CON, 07/18/2018, 14:07. FINDINGS: Image quality: Good Lungs and pleura: [id number] small areas of air trapping noted on expiratory views. On inspiratory images, no significant fibrosis, reticulation, nodules in any particular pattern, or ground-glass opacities noted. No pleural effusions or dense consolidation. No bronchiectasis. Trace left pleural thickening as before. Micro nodules and granulomas are present, without a solitary overtly suspicious pulmonary nodule. Prone images are noncontributory. Mediastinum, heart, and esophagus: Trace amount of fluid is seen in the esophagus. Small coronary calcifications are present. Overall normal heart size. No pathologic lymph nodes identified in the mediastinum or latanya by size criteria. Chest wall and thyroid: Unremarkable Upper abdomen: Small suspected liver cysts. No gross abnormality in the partially visualized abdomen on this noncontrast study. Bones: No acute or suspicious osseous finding. IMPRESSION: The only parenchymal abnormality seen is [id number] air trapping on expiratory images, which can be due to chronic/old small airways disease/inflammation. No significant interstitial lung disease identified otherwise. No significant pleural abnormality identified. Other findings as above. Dictated by: David Gomez M.D. on 10/04/2022 at 10:37 Approved by: David Gomez M.D. on 10/04/2022 at 10:43
--- NOTE | 2022-10-04 09:42 | DI.MRI.S_ITS ---
PROCEDURE: MR HEAD/BRAIN WO/W CON INDICATIONS: Recurrent Migraines, ? vasculitis TECHNIQUE: Noncontrast axial T1 spin echo, axial T2 fast spin echo, sagittal and axial FLAIR, coronal T2 fast spin echo, axial gradient echo, axial diffusion and ADC through the brain. After the administration of contrast, axial and coronal and sagittal 3D VIBE or T1 spin echo with fat saturation through the brain. COMPARISON: [facility], CT, CT HEAD/BRAIN WO CON, 06/08/2021, 9:00. FINDINGS: Image quality: Excellent. CSF Spaces: Basal cisterns are patent. No extra-axial fluid collections. Ventricles are normal in size and shape. Brain: No midline shift. No intracranial bleeds or masses. No abnormal intracranial enhancement. The brainstem appears normal. Diffusion-weighted images demonstrate no acute ischemic insults. No chronic ischemic insults. Normal intravascular flow voids are present. Skull and face: Calvarial marrow is normal in signal. Orbits appear normal. Sinuses: Sinuses and mastoids appear clear. IMPRESSION: 1. Mild volume loss. Minimal small vessel ischemic disease. 2. No acute process. No recent infarct. Dictated by: Laurel Adan M.D. on 10/04/2022 at 9:58 Approved by: Laurel Adan M.D. on 10/04/2022 at 9:59
== END ==
PROVIDERS: PCP Pediatrics; Referring Provider Pediatrics; Visit Provider Pediatrics
DX: G43.909 Migraine, unspecified, not intractable, without status migrainosus (principal); R56.9 Unspecified convulsions; J98.4 Other disorders of lung; J45.909 Unspecified asthma, uncomplicated
CPT/HCPCS: 70553; 71250; A9579

== ENCOUNTER → 2023-01-24 16:52 | Outpatient (CLI) | payer OTHER, MEDICAID, SELFPAY ==
--- NOTE | 2023-01-24 16:56 | DI.RAD.S_ITS ---
PROCEDURE: XR CHEST 2V INDICATIONS: Wheezing TECHNIQUE: 2 views of the chest were acquired. COMPARISON: [facility], CR, XR CHEST 2V, 11/06/2021, 10:32. FINDINGS: Surgical changes and devices: None. Lungs and pleura: Lungs are clear. No pleural effusions or pneumothorax. Mediastinum: Mediastinal contours are normal. Heart size is normal. Bones and chest wall: No suspicious bony abnormalities. Soft tissues appear unremarkable. IMPRESSION: No acute pulmonary process. Dictated by: Susanna Beach M.D. on 01/25/2023 at 13:33 Approved by: Susanna Beach M.D. on 01/25/2023 at 13:33
== END ==
PROVIDERS: PCP Student in an Organized Health Care Education/Training Program; Referring Provider Family Medicine; Visit Provider Family Medicine
DX: R06.02 Shortness of breath (principal)
CPT/HCPCS: 71046

== ENCOUNTER → 2023-03-28 09:51 | Outpatient (CLI) | payer OTHER, MEDICAID, SELFPAY ==
[2023-03-28 10:52] LABS: Cholesterol 200 mg/dL (140-199); HDL Cholesterol 40 mg/dL (40-60); LDL Cholesterol Calculated 128 mg/dL (<100); Triglycerides 159 mg/dL (35-150)
[2023-03-28 16:21] LABS: Rubella Antibody IgG > 350.0 IU/mL (>15)
[2023-03-29 12:48] LABS: Rubeola Measles IgG > 300.0 AU/mL (Immune >16.4)
[2023-03-30 08:32] LABS: Hepatitis B Surf Ab Qualitativ Non Reactive (.)
[2023-03-30 10:37] LABS: Mumps Virus IgG Antibody 37.8 AU/mL (Immune >10.9)
== END ==
PROVIDERS: PCP Student in an Organized Health Care Education/Training Program; Referring Provider Student in an Organized Health Care Education/Training Program; Visit Provider Student in an Organized Health Care Education/Training Program
DX: Z13.220 Encounter for screening for lipoid disorders (principal); Z01.84 Encounter for antibody response examination
CPT/HCPCS: 36415; 80061; 86706; 86735; 86762; 86765

== ENCOUNTER → 2023-06-23 10:45 | Outpatient (CLI) | payer OTHER, MEDICAID, SELFPAY ==
[2023-06-23 11:08] LABS: Add Manual Diff / Slide Review NO; Basophils Absolute Auto 100 /uL (0-100); Basophils Percent Auto 1.5 % (0-2); Eosinophils Absolute Auto 100 /uL (0-450); Eosinophils Percent Auto 1.8 % (2-4); Hematocrit 45.9 % (41-53); Hemoglobin 15.9 g/dL (13.5-17.5); Lymphocytes Absolute Auto 1200 /uL (1100-4500); Lymphocytes Percent Auto 18.9 % (25-40); Mean Corpuscular HGB Conc 34.7 % (30-36); Mean Corpuscular Hemoglobin 29.3 PG (26-34); Mean Corpuscular Volume 84.6 fL (80-100); Monocytes Absolute Auto 700 /uL (0-900); Monocytes Percent Auto 11.5 % (3-14); Neutrophils Absolute Auto 4300 /uL (1500-7000); Neutrophils Percent Auto 66.3 % (50-75); Platelet Count 210 X10^3/uL (150-400); Red Blood Cell Count 5.43 X10^6/uL (4.5-5.9); White Blood Cell Count 6.5 X10^3/uL (4.5-11.0)
[2023-06-23 12:39] LABS: Alanine Aminotransferase 48 IU/L (<50); Albumin 4.5 g/dL (3.5-5.0); Albumin Globulin Ratio 1.4 (1.0-2.8); Alkaline Phosphatase 76 U/L (38-126); Aspartate Aminotransferase 37 IU/L (17-59); BUN Creatinine Ratio 20.6 (6-22); Bilirubin Total 0.8 mg/dL (0.2-1.3); Blood Urea Nitrogen 20 mg/dL (9-20); Calcium 9.2 mg/dL (8.4-10.2); Carbon Dioxide 30 mmol/L (22-32); Chloride 104 mmol/L (98-107); Estimated Glomerular Filt Rate > 60 mL/min (>60); Globulin 3.2 g/dL (1.7-4.1); Glucose 93 mg/dL (70-100); HEMOLYSIS < 15 (0-50); Sodium 138 mmol/L (137-145); Total Protein 7.7 g/dL (6.3-8.2)
== END ==
PROVIDERS: PCP Student in an Organized Health Care Education/Training Program; Referring Provider Student in an Organized Health Care Education/Training Program; Visit Provider Student in an Organized Health Care Education/Training Program
DX: I10 Essential (primary) hypertension (principal); Z86.69 Personal history of other diseases of the nervous system and sense organs; Z13.220 Encounter for screening for lipoid disorders
CPT/HCPCS: 36415; 80053; 85025

== ENCOUNTER → 2023-07-04 14:04 | Outpatient (CLI) | payer OTHER, MEDICAID, SELFPAY ==
--- NOTE | 2023-07-04 14:05 | DI.US.S_ITS ---
PROCEDURE: US ABDOMEN LIMITED INDICATIONS: R/O Gallbladder concerns TECHNIQUE: Real-time scanning was performed of the abdominal and retroperitoneal organs, with image documentation. COMPARISON: None. FINDINGS: Liver: Liver is normal in size and demonstrate diffuse increased echotexture. There is a 1.2 x 1.4 cm cyst in the left hepatic lobe. Gallbladder: No gallstones. No gallbladder wall thickening, pericholecystic fluid or sonographic Álvarez's sign. Biliary ducts: Intrahepatic bile ducts are non-dilated. Extrahepatic bile duct caliber measures 2 mm. Normal is 6-7 mm or less in diameter, or 10 mm or less post-cholecystectomy. Pancreas: Visualized portions of the pancreas are sonographically normal. Miscellaneous: No free abdominal fluid. IMPRESSION: 1. Normal gallbladder. No gallstones or ultrasound findings to suggest acute cholecystitis. 2. Diffusely increased hepatic echotexture. This finding is most likely secondary to hepatic fatty infiltration although other hepatocellular disease may have a similar appearance. Recommend clinical correlation. 3. A 1.2 x 1.4 cm cyst in the left hepatic lobe. Dictated by: Lee Reyes M.D. on 07/06/2023 at 11:02 Approved by: Lee Reyes M.D. on 07/06/2023 at 11:05
== END ==
PROVIDERS: PCP Student in an Organized Health Care Education/Training Program; Referring Provider Student in an Organized Health Care Education/Training Program; Visit Provider Student in an Organized Health Care Education/Training Program
DX: Q44.1 Other congenital malformations of gallbladder (principal); K76.89 Other specified diseases of liver
CPT/HCPCS: 76705

== ENCOUNTER → 2023-07-04 14:06 | Outpatient (CLI) | payer OTHER, MEDICAID, SELFPAY ==
--- NOTE | 2023-07-04 14:07 | DI.RAD.S_ITS ---
PROCEDURE: XR SHOULDER RT MIN 2V INDICATIONS: shoulder pain TECHNIQUE: 3 views of the shoulder were acquired. COMPARISON: None. FINDINGS: Bones: No acute fracture or dislocation. Joint spaces are well maintained. Soft tissues: No suspicious soft tissue calcifications. IMPRESSION: Normal exam. Dictated by: Keri Currie M.D. on 07/04/2023 at 15:29 Approved by: Keri Currie M.D. on 07/04/2023 at 15:31
--- NOTE | 2023-07-04 14:07 | DI.RAD.S_ITS ---
PROCEDURE: XR CERVICAL SPINE 2V OR 3V INDICATIONS: pain TECHNIQUE: 3 view(s) of the cervical spine were acquired. COMPARISON: None. FINDINGS: Bones: Straightening of cervical spine. Vertebral body heights are well-maintained. Mild multilevel degenerative disc disease of the cervical spine. No significant cervical facet arthropathy. The open-mouth view is nondiagnostic. Soft tissues: No prevertebral soft tissue swelling. IMPRESSION: Degenerative changes as described above. Dictated by: Keri Currie M.D. on 07/04/2023 at 15:27 Approved by: Keri Currie M.D. on 07/04/2023 at 15:29
== END ==
PROVIDERS: PCP Student in an Organized Health Care Education/Training Program; Referring Provider Student in an Organized Health Care Education/Training Program; Visit Provider Student in an Organized Health Care Education/Training Program
DX: M50.30 Other cervical disc degeneration, unspecified cervical region (principal); M25.511 Pain in right shoulder
CPT/HCPCS: 72040; 73030; 76705

== ENCOUNTER → 2023-07-14 07:33 | Outpatient (CLI) | payer OTHER, MEDICAID, SELFPAY ==
[2023-07-14 08:30] LABS: Influenza A - CEPHEID Flu A NEGATIVE (NEGATIVE); Influenza B - CEPHEID Flu B NEGATIVE (NEGATIVE); Respiratory Syncytial Virus Negative (Negative)
[2023-07-14 08:31] LABS: COVID-19 CEPHEID 4-PLEX PCR Negative (Negative)
== END ==
PROVIDERS: Family Provider Student in an Organized Health Care Education/Training Program; PCP Student in an Organized Health Care Education/Training Program; Visit Provider Physician Assistant Surgical
DX: R05.1 Acute cough (principal)
CPT/HCPCS: 0241U

== ENCOUNTER → 2023-07-14 07:56 | Outpatient (CLI) | payer OTHER, MEDICAID, SELFPAY ==
--- NOTE | 2023-07-14 08:02 | DI.RAD.S_ITS ---
PROCEDURE: XR CHEST 2V INDICATIONS: Asthma, rhonchi and wheeze on exam TECHNIQUE: 2 views of the chest were acquired. COMPARISON: [facility], CR, XR CHEST 2V, 01/24/2023, 18:07. [facility], CR, XR CHEST 2V, 11/06/2021, 10:32. FINDINGS: Surgical changes and devices: None. Lungs and pleura: Lungs are clear. No pleural effusions or pneumothorax. Peribronchial cuffing. Mediastinum: Mediastinal contours are normal. Heart size is normal. Bones and chest wall: No suspicious bony abnormalities. Soft tissues appear unremarkable. IMPRESSION: Peribronchial cuffing, typically indicating infectious or inflammatory bronchitis. Dictated by: Javier Noguera M.D. on 07/14/2023 at 8:22 Approved by: Javier Noguera M.D. on 07/14/2023 at 8:25
== END ==
PROVIDERS: Family Provider Student in an Organized Health Care Education/Training Program; PCP Student in an Organized Health Care Education/Training Program; Referring Provider Physician Assistant Surgical; Visit Provider Physician Assistant Surgical
DX: J45.909 Unspecified asthma, uncomplicated (principal); R05.1 Acute cough; R09.89 Other specified symptoms and signs involving the circulatory and respiratory systems
CPT/HCPCS: 0241U; 71046

== ENCOUNTER → 2023-07-21 09:32 | Outpatient (CLI) | payer OTHER, MEDICAID, SELFPAY ==
--- NOTE | 2023-07-21 09:33 | DI.CT.S_ITS ---
PROCEDURE: CT ABDOMEN LIVER PROTOCOL INDICATIONS: Small cyst located on liver, fatty infiltration TECHNIQUE: 4 phase scanning was performed. Non-contrast 5 mm axial sections acquired from the diaphragm to the iliac crests. Following the administration of intravenous contrast, 5 mm thick arterial-phase, portal venous-phase, and 5-minute delayed phase images were acquired through the liver. 5 mm thick coronal and sagittal reformats were performed. For radiation dose reduction, the following was used: automated exposure control, adjustment of mA and/or kV according to patient size. COMPARISON: [facility], , US ABDOMEN LIMITED, 07/04/2023, 16:03. FINDINGS: Image quality: Excellent. Lower chest: Unremarkable. ABDOMEN: Liver: No solid mass. Normal enhancement. Patent portal vein. Simple, nonenhancing cyst in segment 2 measuring 1.7 cm. Additional subcentimeter hypoattenuating lesions, too small to characterize by CT. Gallbladder: No radiopaque gallstones or wall thickening. Biliary ducts: No biliary dilation. Pancreas: No ductal dilation. Spleen: Size is within normal limits. Adrenal Glands: No adrenal nodules. Kidneys and Ureters: No hydronephrosis. No solid mass. No complex renal cystic lesion which requires follow up. Multiple small, non complex cystic lesions, Bosniak 2 requiring no further follow-up. Small burden of punctate, nonobstructing right-sided nephrolithiasis. 2 mm stone within the left renal pelvis, without obstruction Stomach and Bowel: Normal colonic caliber, without significant wall thickening. Peritoneum: No abnormal intraperitoneal fluid. No free air. Ventral Wall: No hernia. Abdominal Nodes: No retroperitoneal or mesenteric adenopathy by size criteria. Vessels: Aorta and inferior vena cava are normal in size. PELVIS: Pelvic Organs: Unremarkable. Bladder: Unremarkable. Pelvic Nodes: No enlarged lymph nodes. Miscellaneous: No inguinal hernias are seen. Bones: No aggressive osseous abnormality. IMPRESSION: Benign left hepatic lobe cyst. Additional subcentimeter hypoattenuating lesions, too small to characterize by CT. No further follow-up is indicated. Small burden of nonobstructing right-sided nephrolithiasis, which are punctate. 2 mm stone within the left renal pelvis, which is nonobstructing at this time. Dictated by: Javier Noguera M.D. on 07/21/2023 at 13:08 Approved by: Javier Noguera M.D. on 07/21/2023 at 13:17
== END ==
LOC: CT 09:32
PROVIDERS: Family Provider Student in an Organized Health Care Education/Training Program; PCP Student in an Organized Health Care Education/Training Program; Referring Provider Student in an Organized Health Care Education/Training Program; Visit Provider Student in an Organized Health Care Education/Training Program
DX: K76.89 Other specified diseases of liver (principal); N20.0 Calculus of kidney; R10.11 Right upper quadrant pain
CPT/HCPCS: 74170; Q9967

== ENCOUNTER 2023-08-15 14:30 | Outpatient (RCR) | payer OTHER, MEDICAID, SELFPAY ==
--- NOTE | 2023-08-01 15:50 | PT.OIE ---
Current Diagnoses Pain in unspecified shoulder (08/01/23) Weakness (08/01/23) Past Medical History (Last Updated 09/17/22 @ 15:24 by Riki Pretty MD) Chronic sinusitis Essential hypertension Kobe's thyroiditis History of migraine headaches Moderate persistent asthma Osteoarthritis of right hand Postconcussion syndrome Tinnitus of both ears Visit Care Team Role Provider Type Manasa Thomson MD Attending Provider Physician Family Provider Primary Care Provider Referring Provider Specialty: Family Practice Obstetrics Address: [address] [place] [address], [address] Email: [email or web address] Physical Therapy Initial Evaluation PT-OP-A Visit Information Start: 08/01/23 09:32 Freq: Status: Active Protocol: Document 08/01/23 10:32 NM (Rec: 08/01/23 12:20 NM [id number]) Out-Patient Physical Therapy Visit Information Visit Information Visit Type Initial Evaluation Visit Note 24 units max Visit Start Time 10:35 Visit Stop Time 11:15 Visit Number 1 Evaluation Information Evaluation Date 08/01/23 Precautions Precautions blood pressure, hx of concussions, migraines PT-OP-B Current Condition Start: 08/01/23 09:32 Freq: Status: Active Protocol: Document 08/01/23 10:32 NM (Rec: 08/01/23 12:20 NM [id number]) Current Condition History of Current Condition Onset Date 10 weeks ago Current Complaints pain, tightness History of Current Condition Pt presents with recurring pain between shoulder blades and spine since he was a kid. Reports radiating to neck, arm pits, chest. Pt reports tingling in all 5 fingers but denies numbness. He has been to doctor who dx with either pinched nerve or gallbladder. He has had CT scans (benign liver cyst, kidney stones), x rays. Pt reports that he has had kidney stones before. 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 Pt reports that he has beginnings of carpal tunnel. 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 Pt denies CHARY, but states psychological stress 10 weeks ago (February 2023). Recent concussions (> 1 year ago) within 1 week, hit head in attic several times; got checked out by PCP. Pt reports clicking in the neck at base of skull when immobile (e.g. watching a show). Reports tingling in all 5 fingers to mid finger, reports only in AM after sleeping. Reports massage, tiger and dragon balm help, medication. Has chronic migraines. Usually gets tension headaches, which is what he thought was going to happen with this round. Prior Treatments and Tests Radiographs- cervical spine : degenerative changes including straightening of cervical spine, mild multilevel degenerative disc diseas, cervical facet arthropathy; shoulder 07/04/23: normal exam Current Functional Impairments (Reported) Functional Limitations- ADL's using a mouse (holding arm up) , holding arm in front, grabbing bar and pulling out of tub, dressing R arm into sleeve Functional Limitations- Mobility/Gait driving stick shift Functional Limitations- Work/School osteology teacher (takes ibuprofen) Functional Limitations- Recreation/ 3D printing and painting Hobbies sculptures Functional Limitations- Other watching tv or playing video games 20-30 min PT-OP-C Subjective Start: 08/01/23 09:32 Freq: Status: Active Protocol: Document 08/01/23 10:32 NM (Rec: 08/01/23 12:20 NM [id number]) OP-PT Subjective Patient Comments Patient Comments see hx above for pt report Patient Questionnaires Quick Dash- Upper Extremity Quick Dash UE Score 45.5% OP-PT Pain Assessment Location midback Pain Location Details R shoulder (center)& tendon, rib cage & chest, R neck and mid back Intensity 7 Scale Used Numeric (0 - 10) Description Aching,Tingling Frequency Frequent Radiating Location R arm to wrist and fingers Pain Aggravating Factors Position,ADL's,Activity, Sitting Other Pain Aggravating Factors sleeping position (L with pillow, no tingle), reaching, placements Pain Alleviating Factors Heat,Medication,Massage Other Pain Alleviating Factors salve, edibles, stretching ( pec, IR w/ arm ext, reach up) Home Pain Medication Use Pain Medications Used ibuprofen, muscle relaxers PT-OP-E Functional Tests Start: 08/01/23 09:32 Freq: Status: Active Protocol: Document 08/01/23 10:32 NM (Rec: 08/01/23 12:20 NM [id number]) Functional Tests Apley's Scratch Test Action 1- Left post cuff Action 1- Right post cuff Action 2- Left T4 Action 2- Right T3 Action 3- Left T8 Action 3- Right T9; tightness PT-OP-F Manual Assessment Start: 08/01/23 09:32 Freq: Status: Active Protocol: Document 08/01/23 10:32 NM (Rec: 08/01/23 12:20 NM [id number]) Manual Assessments Soft Tissue Assessment Soft Tissue Mobility Assessment Increased cervical paraspinal, lat tightness. Increased tone near R rhomboids. Joint Mobility Assessment Joint Mobility Assessment Right shoulder joint clicking PT-OP-H Neuro Start: 08/01/23 09:32 Freq: Status: Active Protocol: Document 08/01/23 10:32 NM (Rec: 08/01/23 12:20 NM [id number]) Sensation Evaluation Comments Summary Comments Will assess formally in future sessions PT-OP-J Posture/Palpation/Skin Start: 08/01/23 09:32 Freq: Status: Active Protocol: Document 08/01/23 10:32 NM (Rec: 08/01/23 12:20 NM [id number]) Posture Evaluation Position Standing Head/C-Spine Posture C-Spine Flattened L-Spine Posture Increased Lordosis Shoulder Posture (L) Rounded,(R) Rounded,(L) Forward,(R) Forward Scapula Posture (R) Protracted,(R) Elevated,(L ) Winged,(R) Winged Arm Posture (L) Internally Rotated,(R) Internally Rotated Pelvis Posture Anteriorly Tilted Weight Distribution Balanced Palpation Assessment Location cervicothoracic spine Palpation Details Increased muscle tightness No midline tenderness at spinous processes. Decreased joint mobility Tenderness along R facets, more upper than lower cervical R shoulder Palpation Details Tender over long head biceps tendon, pectoralis major across chest and sternum no tenderness over biceps muscle belly, rotator cuff PT-OP-K Range of Motion Start: 08/01/23 09:32 Freq: Status: Active Protocol: Document 08/01/23 10:32 NM (Rec: 08/01/23 12:20 NM [id number]) Cervical Spine Range of Motion Cervical Spine Active Degrees Flexion 55 Extension 45 Rotation Left 65 Rotation Right 58 Lateral Flexion Left 30 Lateral Flexion Right 25 Comments All R sided, flex, ext in neck . shoulder mid back Thoracic spine: limitations into rotation to R, no visible limitations into flexion/ extension/lateral flexion Shoulder Goniometric Range of Motion Shoulder L AROM Flexion 160 Extension 50 Abduction 170 External Rotation at 0 degrees Abduction 60 Internal Rotation 70 R AROM Flexion 165 Abduction 170 External Rotation at 0 degrees Abduction 50 Internal Rotation 50 PT-OP-L Special Tests Start: 08/01/23 09:32 Freq: Status: Active Protocol: Document 08/01/23 10:32 NM (Rec: 08/01/23 12:20 NM [id number]) Special Tests Cervical Spine Special Tests Passive Neck Flexion Test Results + Comments worse with R rot Upper Limb Tension Test Test Results + Comments median and radial nn. Vertebral Artery Test Results - Traction Test Results + Transverse Ligament Test Results - Alar Ligament Test Results - Spurling's Test Test Results + Comments R Shoulder Special Tests Drop Arm Rotator Cuff Test Results - External Rotation Lag Sign Test Results - [place] Niko Impingement Test Results + Yergason's Biceps Test Results - Speed's Biceps Test Results + Empty Can Test Results - PT-OP-M Strength Start: 08/01/23 09:32 Freq: Status: Active Protocol: Document 08/01/23 10:32 NM (Rec: 08/01/23 12:20 NM [id number]) Cervical Spine Strength Cervical Spine Manual Muscle Testing Flexion (C1-2) 4- Good- Extension 4 Good Rotation Left 4 Good Rotation Right 4 Good Lateral Flexion Left (C3) 4 Good Lateral Flexion Right (C3) 4 Good Trunk Strength Trunk Manual Muscle Testing Flexion 4 Good Extension 4 Good Rotation Left 4 Good Rotation Right 4 Good Lateral Flexion Left 4 Good Lateral Flexion Right 4 Good Comments Pain free with stabilization; tested in sitting Scapula Strength Scapula Manual Muscle Testing Right Elevation (C4) 4- Good- Adduction 4- Good- Abduction 4- Good- Depression 4- Good- Left Elevation (C4) 3+ Fair+ Adduction 3+ Fair+ Abduction 3+ Fair+ Depression 3+ Fair+ Shoulder Strength Shoulder Manual Muscle Testing Left Flexion 4+ Good+ Extension 4+ Good+ Abduction (C5) 4+ Good+ Adduction 4+ Good+ External Rotation 4+ Good+ Internal Rotation 4+ Good+ Right Flexion 3+ Fair+ Extension 4 Good Abduction (C5) 4 Good Adduction 4 Good External Rotation 4 Good Internal Rotation 4 Good Comments pain over biceps tendon only with resisted flexion Elbow/Forearm Strength Elbow and Forearm Manual Muscle Testing Left Flexion (C6) 4+ Good+ Extension (C7) 4+ Good+ Pronation 4+ Good+ Supination 4+ Good+ Right Flexion (C6) 4+ Good+ Extension (C7) 4+ Good+ Pronation 4+ Good+ Supination 4 Good Comments Pain free PT-OP-T Assessment and Plan Start: 08/01/23 09:32 Freq: Status: Active Protocol: Document 08/01/23 10:32 NM (Rec: 08/01/23 12:20 NM [id number]) Physical Therapy Assessment Rehab Potential Rehabilitation Potential Good Evaluation Complexity Number of Personal Factors/Comorbidities 3 or More Number of Body Systems Impaired 3 Clinical Presentation at Evaluation Stable Impairments Impairments Activity Tolerance,Functional Activities,Functional Mobility ,Gait,Integument,Pain,Posture, ROM,Sensation,Soft Tissue Mobility,Strength,Vestibular Other Concerns Barriers to Rehabilitation Pt has multiple affected joints and co-morbidities, including an inflammatory disease. He also limited insurance visits and limited financial means which may impact his ability to attend PT Goals Four Impairment HEP Short Term Goal (STG) Pt will report compliance with HEP at least 2-3x/wk in order to maximize progression with PT in order to promote independence with rehabilitation STG Duration 6 weeks Fdc Goal (LTG) Pt will report compliance with HEP at least 3x/wk in order to transition into maintenance program and improve activity tolerance LTG Duration 12 weeks Three Impairment function Psychiatric Social Worker Goal (LTG) Pt will report no increase in baseline pain with donning/ doffing shirt/jacket in order to demonstrate improved R shoulder ROM and functional ADLs LTG Duration 12 weeks Two Impairment strength Short Term Goal (STG) Pt will improve R periscapular strength to at least 4/5 MMT in order to demonstrate improved proximal strength for postural muscle control and to offload cervical spine STG Duration 6 weeks Psychiatric Social Worker Goal (LTG) Pt will improve R periscapular strength to at least 4+/5 MMT in order to demonstrate improved proximal strength for postural muscle control and to offload cervical spine LTG Duration 12 weeks One Impairment ROM Short Term Goal (STG) Pt will increase R cervical spine rotation to at least 60 deg in order to improve visual scanning during driving STG Duration 6 weeks Fdc Goal (LTG) Pt will increase B cervical spine rotation to at least 70 deg in order to improve visual scanning during driving LTG Duration 12 weeks Assessment Summary Assessment Pt is a 48 y.o. male presenting with pain in his R shoulder, neck, mid-thoracic regions. His neck and mid-back pain is primarily R sided and refers down his R arm to his fingers. He is impaired in his range of motion, strength, pain management, activity tolerance, and ability to participate in ADLs. Pt had limited global cervical spine motion with symptom referral with R rotation, lateral flexion, and extension. He is able to stabilize his cervical and thoracic spine against resistance without symptom reproduction. Right trunk rotation also reproduces mid- back symptoms. Neck pain is likely discogenic. Pt has tenderness to palpation along his R long head biceps tendon, R cervical spine, R rhomboids , R latissimus, and R pectoralis muscles. He has positive median and radial nerve tension tests. Pt also has decreased bilateral shoulder ROM and pain with abduction and flexion. He also has pain with resisted shoulder flexion and positive for several tests indicating irritation of long head biceps tendon. PT educated pt on exam findings and plan of care . Pt has limited insurance visits and would like to focus primarily on his neck and mid -back pain. Pt would benefit from skilled PT in order to improve cervicothoracic spine mobility and R shoulder mobility/strength in order to improve symptom management and activity tolerance to be able to perform ADLs. Physical Therapy Plan Frequency and Duration Frequency of Treatment 1-2x/wk Duration of treatment (weeks) 12 Plan of Care Start Date 08/01/23 Plan of Care End Date 11/04/23 Therapeutic Interventions Therapeutic Interventions Balance Training,Gait Training ,Home Exercise Program,Joint Mobilizations,Manual Therapy, Neuromuscular Re-education, Patient/Caregiver Education, Self-Care/Home Management, Sensory Integration,Soft Tissue Mobilization,Taping, Therapeutic Activities, Therapeutic Exercises Modalities Cold Pack/Ice Massage,Hot Packs,Ultrasound Next Visit Focus/Plan Next Note Type Treatment Note Next Visit Plan blood pressure for baseline Disc hydrostatic management with towel, nerve glides, scapular mobility and control, thoracic ext/rot with shoulder flex Soft tissue mobilization/ mobilization with movement: neck, shoulder, mid back
--- NOTE | 2023-08-03 12:56 | PT.OTN ---
Current Diagnoses Pain in unspecified shoulder (08/03/23) Weakness (08/03/23) Physical Therapy Treatment Note PT-OP-A Visit Information Start: 08/01/23 09:32 Freq: Status: Active Protocol: Document 08/03/23 10:34 NM (Rec: 08/03/23 11:18 NM [id number]) Out-Patient Physical Therapy Visit Information Visit Information Visit Type Treatment Note Visit Note 24 units max 04/16 units Visit Start Time 10:34 Visit Stop Time 11:10 Visit Number 04/16 units Evaluation Information Evaluation Date 08/01/23 PT-OP-B Current Condition Start: 08/01/23 09:32 Freq: Status: Active Protocol: Document 08/01/23 10:32 NM (Rec: 08/01/23 12:20 NM [id number]) Current Condition History of Current Condition Onset Date 10 weeks ago Current Complaints pain, tightness History of Current Condition Pt presents with recurring pain between shoulder blades and spine since he was a kid. Reports radiating to neck, arm pits, chest. Pt reports tingling in all 5 fingers but denies numbness. He has been to doctor who dx with either pinched nerve or gallbladder. He has had CT scans (benign liver cyst, kidney stones), x rays. Pt reports that he has had kidney stones before. 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 Pt reports that he has beginnings of carpal tunnel. 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 Pt denies CHARY, but states psychological stress 10 weeks ago (February 2023). Recent concussions (> 1 year ago) within 1 week, hit head in attic several times; got checked out by PCP. Pt reports clicking in the neck at base of skull when immobile (e.g. watching a show). Reports tingling in all 5 fingers to mid finger, reports only in AM after sleeping. Reports massage, tiger and dragon balm help, medication. Has chronic migraines. Usually gets tension headaches, which is what he thought was going to happen with this round. Prior Treatments and Tests Radiographs- cervical spine : degenerative changes including straightening of cervical spine, mild multilevel degenerative disc diseas, cervical facet arthropathy; shoulder 07/04/23: normal exam Current Functional Impairments (Reported) Functional Limitations- ADL's using a mouse (holding arm up) , holding arm in front, grabbing bar and pulling out of tub, dressing R arm into sleeve Functional Limitations- Mobility/Gait driving stick shift Functional Limitations- Work/School cryptography teacher (takes ibuprofen) Functional Limitations- Recreation/ 3D printing and painting Hobbies sculptures Functional Limitations- Other watching tv or playing video games 20-30 min PT-OP-C Subjective Start: 08/01/23 09:32 Freq: Status: Active Protocol: Document 08/03/23 10:34 NM (Rec: 08/03/23 11:18 NM [id number]) OP-PT Subjective Patient Comments Patient Comments No change since evaluation. Tingling in R thumb but not whole hand. Hurts from lat to mid back and tension to neck, headache. PT-OP-E Functional Tests Start: 08/01/23 09:32 Freq: Status: Active Protocol: Document 08/01/23 10:32 NM (Rec: 08/01/23 12:20 NM [id number]) Functional Tests Apley's Scratch Test Action 1- Left post cuff Action 1- Right post cuff Action 2- Left T4 Action 2- Right T3 Action 3- Left T8 Action 3- Right T9; tightness PT-OP-F Manual Assessment Start: 08/01/23 09:32 Freq: Status: Active Protocol: Document 08/01/23 10:32 NM (Rec: 08/01/23 12:20 NM [id number]) Manual Assessments Soft Tissue Assessment Soft Tissue Mobility Assessment Increased cervical paraspinal, lat tightness. Increased tone near R rhomboids. Joint Mobility Assessment Joint Mobility Assessment Right shoulder joint clicking PT-OP-H Neuro Start: 08/01/23 09:32 Freq: Status: Active Protocol: Document 08/01/23 10:32 NM (Rec: 08/01/23 12:20 NM [id number]) Sensation Evaluation Comments Summary Comments Will assess formally in future sessions PT-OP-J Posture/Palpation/Skin Start: 08/01/23 09:32 Freq: Status: Active Protocol: Document 08/01/23 10:32 NM (Rec: 08/01/23 12:20 NM [id number]) Posture Evaluation Position Standing Head/C-Spine Posture C-Spine Flattened L-Spine Posture Increased Lordosis Shoulder Posture (L) Rounded,(R) Rounded,(L) Forward,(R) Forward Scapula Posture (R) Protracted,(R) Elevated,(L ) Winged,(R) Winged Arm Posture (L) Internally Rotated,(R) Internally Rotated Pelvis Posture Anteriorly Tilted Weight Distribution Balanced Palpation Assessment Location cervicothoracic spine Palpation Details Increased muscle tightness No midline tenderness at spinous processes. Decreased joint mobility Tenderness along R facets, more upper than lower cervical R shoulder Palpation Details Tender over long head biceps tendon, pectoralis major across chest and sternum no tenderness over biceps muscle belly, rotator cuff PT-OP-K Range of Motion Start: 08/01/23 09:32 Freq: Status: Active Protocol: Document 08/01/23 10:32 NM (Rec: 08/01/23 12:20 NM [id number]) Cervical Spine Range of Motion Cervical Spine Active Degrees Flexion 55 Extension 45 Rotation Left 65 Rotation Right 58 Lateral Flexion Left 30 Lateral Flexion Right 25 Comments All R sided, flex, ext in neck . shoulder mid back Thoracic spine: limitations into rotation to R, no visible limitations into flexion/ extension/lateral flexion Shoulder Goniometric Range of Motion Shoulder L AROM Flexion 160 Extension 50 Abduction 170 External Rotation at 0 degrees Abduction 60 Internal Rotation 70 R AROM Flexion 165 Abduction 170 External Rotation at 0 degrees Abduction 50 Internal Rotation 50 PT-OP-L Special Tests Start: 08/01/23 09:32 Freq: Status: Active Protocol: Document 08/01/23 10:32 NM (Rec: 08/01/23 12:20 NM [id number]) Special Tests Cervical Spine Special Tests Passive Neck Flexion Test Results + Comments worse with R rot Upper Limb Tension Test Test Results + Comments median and radial nn. Vertebral Artery Test Results - Traction Test Results + Transverse Ligament Test Results - Alar Ligament Test Results - Spurling's Test Test Results + Comments R Shoulder Special Tests Drop Arm Rotator Cuff Test Results - External Rotation Lag Sign Test Results - [place] Niko Impingement Test Results + Yergason's Biceps Test Results - Speed's Biceps Test Results + Empty Can Test Results - PT-OP-M Strength Start: 08/01/23 09:32 Freq: Status: Active Protocol: Document 08/01/23 10:32 NM (Rec: 08/01/23 12:20 NM [id number]) Cervical Spine Strength Cervical Spine Manual Muscle Testing Flexion (C1-2) 4- Good- Extension 4 Good Rotation Left 4 Good Rotation Right 4 Good Lateral Flexion Left (C3) 4 Good Lateral Flexion Right (C3) 4 Good Trunk Strength Trunk Manual Muscle Testing Flexion 4 Good Extension 4 Good Rotation Left 4 Good Rotation Right 4 Good Lateral Flexion Left 4 Good Lateral Flexion Right 4 Good Comments Pain free with stabilization; tested in sitting Scapula Strength Scapula Manual Muscle Testing Right Elevation (C4) 4- Good- Adduction 4- Good- Abduction 4- Good- Depression 4- Good- Left Elevation (C4) 3+ Fair+ Adduction 3+ Fair+ Abduction 3+ Fair+ Depression 3+ Fair+ Shoulder Strength Shoulder Manual Muscle Testing Left Flexion 4+ Good+ Extension 4+ Good+ Abduction (C5) 4+ Good+ Adduction 4+ Good+ External Rotation 4+ Good+ Internal Rotation 4+ Good+ Right Flexion 3+ Fair+ Extension 4 Good Abduction (C5) 4 Good Adduction 4 Good External Rotation 4 Good Internal Rotation 4 Good Comments pain over biceps tendon only with resisted flexion Elbow/Forearm Strength Elbow and Forearm Manual Muscle Testing Left Flexion (C6) 4+ Good+ Extension (C7) 4+ Good+ Pronation 4+ Good+ Supination 4+ Good+ Right Flexion (C6) 4+ Good+ Extension (C7) 4+ Good+ Pronation 4+ Good+ Supination 4 Good Comments Pain free PT-OP-Q Treatments Start: 08/01/23 09:32 Freq: Status: Active Protocol: Document 08/03/23 10:34 NM (Rec: 08/03/23 11:18 NM [id number]) Therapeutic Exercises Supine Exercises shoulder flexion Supine Exercise Name with thoracic extension Side bilateral Equipment Used pool noodle Reps/Minutes 10 Comments cued pain free range; feedback for good stretch deep neck flexor Supine Exercise Name 1. head nods, 2. chin tuck Equipment Used towel roll under head Reps/Minutes 1. 10 ea, 2. 10x2 Comments pain free Sidelying Exercises open book Side bilateral Reps/Minutes 10 Comments feels at rhomboid, restricted ROM to R; cued for form Sitting Exercises scapular squeezes Sitting Exercise Name with B ER (standing at wall) Side bilateral Resistance level 1 band Reps/Minutes 10 with 1 hold Comments cued for form, positive feedback; following mobilization Other Exercises self soft tissue mobilization Other Exercise Name mobilization with movement of suboccipitals, rhomboids w/ shoulder flex/abd Equipment Used two racquetballs at occiput base Reps/Minutes 4 minutes Comments reports symptom reduction disc hydrostatic management Equipment Used towel roll under neck Reps/Minutes 3 min Comments symptom reduction in hand Manual Therapy Treatment Soft Tissue Mobilization R shoulder/paraspinals Body Location rhomboids, pec, rotator cuff, lat Mobilization Type Rolling,Strumming,Sustained Pressure Intensity/Depth Superficial Body Position Sidelying Comments Trigger point and very tender at R rhomboid. Reduction with superficial mobilization. Lat tender but tolerates diffuse hand superficial mobilization from front to back. Gentle rolling of rotator cuff, tender at infraspinatus but not a lot of time spent as pt reports that give him panic attacks cervical spine Body Location UT, LS, paraspinals, suboccipitals Mobilization Type Rolling,Sustained Pressure, Trigger Point Release Intensity/Depth Moderate Body Position supine/sidelying Comments Trigger points at UT and LS. Reduced with trigger point release. Cued for breathing. Superficial to moderate rolling of paraspinals, R>L tenderness and tightness. Spasms in suboccipitals, reduced with gentle soft tissue mobilization Manual Traction cervical spine Reps/Duration 2x30 Comments reports less tingling in fingers after. Gentle manual traction Self-Care/Home Management Treatment Education Patient Education Home Exercise Program Other Education HEP: suboccipital release, cervical spine chin tuck on towerl, open book, rhomboid self massage, scapular squeezes with a band (ER) Educated on sleep posture for symptom reduction using pillows, soft tissue mobilization for pain management PT-OP-T Assessment and Plan Start: 08/01/23 09:32 Freq: Status: Active Protocol: Document 08/03/23 10:34 NM (Rec: 08/03/23 11:18 NM [id number]) Physical Therapy Assessment Goals Four Impairment HEP Short Term Goal (STG) Pt will report compliance with HEP at least 2-3x/wk in order to maximize progression with PT in order to promote independence with rehabilitation STG Duration 6 weeks Assisted Goal (LTG) Pt will report compliance with HEP at least 3x/wk in order to transition into maintenance program and improve activity tolerance LTG Duration 12 weeks Three Impairment function Prepress Proofer Goal (LTG) Pt will report no increase in baseline pain with donning/ doffing shirt/jacket in order to demonstrate improved R shoulder ROM and functional ADLs LTG Duration 12 weeks Two Impairment strength Short Term Goal (STG) Pt will improve R periscapular strength to at least 4/5 MMT in order to demonstrate improved proximal strength for postural muscle control and to offload cervical spine STG Duration 6 weeks Assisted Goal (LTG) Pt will improve R periscapular strength to at least 4+/5 MMT in order to demonstrate improved proximal strength for postural muscle control and to offload cervical spine LTG Duration 12 weeks One Impairment ROM Short Term Goal (STG) Pt will increase R cervical spine rotation to at least 60 deg in order to improve visual scanning during driving STG Duration 6 weeks Prepress Proofer Goal (LTG) Pt will increase B cervical spine rotation to at least 70 deg in order to improve visual scanning during driving LTG Duration 12 weeks Assessment Summary Assessment Pt tolerated session well, reporting that he did not have any neural symptoms in his R arm at end of session. Good response to therapeutic exercise, but poor activity tolerance overall. Pt fatigues very quickly. Initiated gentle cervical and thoracic ROM to improve kinetic chain mobility. Pt has most tenderness at rhomboids with open book, reduced with soft tissue mobilization. Educated on gentle soft tissue mobilization with movement of both suboccipitals and rhomboids for symptom reduction using racquetballs. During manual treatment, pt responds best to manual traction of cervical spine and gentle soft tissue mobilization. He had several trigger points in the periscapular muscles, which were released leading to muscle relaxation. Pt would benefit from skilled PT for cervicothoracic mobility, periscapular strengthening and progressive exercise in order to improve symptom management and activity tolerance. Physical Therapy Plan Frequency and Duration Frequency of Treatment 1-2x/wk Duration of treatment (weeks) 12 Plan of Care Start Date 08/01/23 Plan of Care End Date 11/04/23 Therapeutic Interventions Therapeutic Interventions Balance Training,Gait Training ,Home Exercise Program,Joint Mobilizations,Manual Therapy, Neuromuscular Re-education, Patient/Caregiver Education, Self-Care/Home Management, Sensory Integration,Soft Tissue Mobilization,Taping, Therapeutic Activities, Therapeutic Exercises Modalities Cold Pack/Ice Massage,Hot Packs,Ultrasound Next Visit Focus/Plan Next Note Type Treatment Note Next Visit Plan blood pressure for baseline in sitting 2 UNITS ONLY/ SESSION Review open book vs thread needle, trial snow angels, MT/ LT strengthening (prone vs tongan ball vs standing or seated), gentle rows/low row, median nerve glides Disc hydrostatic management with towel, nerve glides, scapular mobility and control, thoracic ext/rot with shoulder flex Soft tissue mobilization/ mobilization with movement: neck, shoulder, mid back - gentle, thoracic and cervical mobilization
--- NOTE | 2023-08-10 12:46 | PT.OTN ---
Current Diagnoses Pain in unspecified shoulder (08/10/23) Weakness (08/10/23) Physical Therapy Treatment Note PT-OP-A Visit Information Start: 08/01/23 09:32 Freq: Status: Active Protocol: Document 08/10/23 10:38 NM (Rec: 08/10/23 11:19 NM [id number]) Out-Patient Physical Therapy Visit Information Visit Information Visit Type Treatment Note Visit Note 24 units max 224 units Visit Start Time 10:38 Visit Stop Time 11:15 Visit Number 06/14 Evaluation Information Evaluation Date 08/01/23 Precautions Precautions blood pressure, hx of concussions, migraines PT-OP-B Current Condition Start: 08/01/23 09:32 Freq: Status: Active Protocol: Document 08/01/23 10:32 NM (Rec: 08/01/23 12:20 NM [id number]) Current Condition History of Current Condition Onset Date 10 weeks ago Current Complaints pain, tightness History of Current Condition Pt presents with recurring pain between shoulder blades and spine since he was a kid. Reports radiating to neck, arm pits, chest. Pt reports tingling in all 5 fingers but denies numbness. He has been to doctor who dx with either pinched nerve or gallbladder. He has had CT scans (benign liver cyst, kidney stones), x rays. Pt reports that he has had kidney stones before. 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 Pt reports that he has beginnings of carpal tunnel. 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 Pt denies CHARY, but states psychological stress 10 weeks ago (February 2023). Recent concussions (> 1 year ago) within 1 week, hit head in attic several times; got checked out by PCP. Pt reports clicking in the neck at base of skull when immobile (e.g. watching a show). Reports tingling in all 5 fingers to mid finger, reports only in AM after sleeping. Reports massage, tiger and dragon balm help, medication. Has chronic migraines. Usually gets tension headaches, which is what he thought was going to happen with this round. 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 He still has tingling in his hands from thumb and pinky. He did not have tingling prior to fall when doing stretches. Reports exercises helpful. PT-OP-E Functional Tests Start: 08/01/23 09:32 Freq: Status: Active Protocol: Document 08/01/23 10:32 NM (Rec: 08/01/23 12:20 NM [id number]) Functional Tests Apley's Scratch Test Action 1- Left post cuff Action 1- Right post cuff Action 2- Left T4 Action 2- Right T3 Action 3- Left T8 Action 3- Right T9; tightness PT-OP-F Manual Assessment Start: 08/01/23 09:32 Freq: Status: Active Protocol: Document 08/01/23 10:32 NM (Rec: 08/01/23 12:20 NM [id number]) Manual Assessments Soft Tissue Assessment Soft Tissue Mobility Assessment Increased cervical paraspinal, lat tightness. Increased tone near R rhomboids. Joint Mobility Assessment Joint Mobility Assessment Right shoulder joint clicking PT-OP-H Neuro Start: 08/01/23 09:32 Freq: Status: Active Protocol: Document 08/01/23 10:32 NM (Rec: 08/01/23 12:20 NM [id number]) Sensation Evaluation Comments Summary Comments Will assess formally in future sessions PT-OP-J Posture/Palpation/Skin Start: 08/01/23 09:32 Freq: Status: Active Protocol: Document 08/01/23 10:32 NM (Rec: 08/01/23 12:20 NM [id number]) Posture Evaluation Position Standing Head/C-Spine Posture C-Spine Flattened L-Spine Posture Increased Lordosis Shoulder Posture (L) Rounded,(R) Rounded,(L) Forward,(R) Forward Scapula Posture (R) Protracted,(R) Elevated,(L ) Winged,(R) Winged Arm Posture (L) Internally Rotated,(R) Internally Rotated Pelvis Posture Anteriorly Tilted Weight Distribution Balanced Palpation Assessment Location cervicothoracic spine Palpation Details Increased muscle tightness No midline tenderness at spinous processes. Decreased joint mobility Tenderness along R facets, more upper than lower cervical R shoulder Palpation Details Tender over long head biceps tendon, pectoralis major across chest and sternum no tenderness over biceps muscle belly, rotator cuff PT-OP-K Range of Motion Start: 08/01/23 09:32 Freq: Status: Active Protocol: Document 08/01/23 10:32 NM (Rec: 08/01/23 12:20 NM [id number]) Cervical Spine Range of Motion Cervical Spine Active Degrees Flexion 55 Extension 45 Rotation Left 65 Rotation Right 58 Lateral Flexion Left 30 Lateral Flexion Right 25 Comments All R sided, flex, ext in neck . shoulder mid back Thoracic spine: limitations into rotation to R, no visible limitations into flexion/ extension/lateral flexion Shoulder Goniometric Range of Motion Shoulder L AROM Flexion 160 Extension 50 Abduction 170 External Rotation at 0 degrees Abduction 60 Internal Rotation 70 R AROM Flexion 165 Abduction 170 External Rotation at 0 degrees Abduction 50 Internal Rotation 50 PT-OP-L Special Tests Start: 08/01/23 09:32 Freq: Status: Active Protocol: Document 08/01/23 10:32 NM (Rec: 08/01/23 12:20 NM [id number]) Special Tests Cervical Spine Special Tests Passive Neck Flexion Test Results + Comments worse with R rot Upper Limb Tension Test Test Results + Comments median and radial nn. Vertebral Artery Test Results - Traction Test Results + Transverse Ligament Test Results - Alar Ligament Test Results - Spurling's Test Test Results + Comments R Shoulder Special Tests Drop Arm Rotator Cuff Test Results - External Rotation Lag Sign Test Results - [place] Niko Impingement Test Results + Yergason's Biceps Test Results - Speed's Biceps Test Results + Empty Can Test Results - PT-OP-M Strength Start: 08/01/23 09:32 Freq: Status: Active Protocol: Document 08/01/23 10:32 NM (Rec: 08/01/23 12:20 NM [id number]) Cervical Spine Strength Cervical Spine Manual Muscle Testing Flexion (C1-2) 4- Good- Extension 4 Good Rotation Left 4 Good Rotation Right 4 Good Lateral Flexion Left (C3) 4 Good Lateral Flexion Right (C3) 4 Good Trunk Strength Trunk Manual Muscle Testing Flexion 4 Good Extension 4 Good Rotation Left 4 Good Rotation Right 4 Good Lateral Flexion Left 4 Good Lateral Flexion Right 4 Good Comments Pain free with stabilization; tested in sitting Scapula Strength Scapula Manual Muscle Testing Right Elevation (C4) 4- Good- Adduction 4- Good- Abduction 4- Good- Depression 4- Good- Left Elevation (C4) 3+ Fair+ Adduction 3+ Fair+ Abduction 3+ Fair+ Depression 3+ Fair+ Shoulder Strength Shoulder Manual Muscle Testing Left Flexion 4+ Good+ Extension 4+ Good+ Abduction (C5) 4+ Good+ Adduction 4+ Good+ External Rotation 4+ Good+ Internal Rotation 4+ Good+ Right Flexion 3+ Fair+ Extension 4 Good Abduction (C5) 4 Good Adduction 4 Good External Rotation 4 Good Internal Rotation 4 Good Comments pain over biceps tendon only with resisted flexion Elbow/Forearm Strength Elbow and Forearm Manual Muscle Testing Left Flexion (C6) 4+ Good+ Extension (C7) 4+ Good+ Pronation 4+ Good+ Supination 4+ Good+ Right Flexion (C6) 4+ Good+ Extension (C7) 4+ Good+ Pronation 4+ Good+ Supination 4 Good Comments Pain free PT-OP-Q Treatments Start: 08/01/23 09:32 Freq: Status: Active Protocol: Document 08/10/23 10:38 NM (Rec: 08/10/23 11:19 NM [id number]) Therapeutic Exercises Supine Exercises rotator cuff Side bilateral Resistance level 1 band around forearms Reps/Minutes 10, 5 Comments arms slightly flexed; cued for scapular setting shoulder flexion Supine Exercise Name with thoracic extension Side bilateral Resistance 2# weight on dowel Reps/Minutes 10 with 2 hold at end range flexion Comments reports symptom reduction charito with reps Sitting Exercises cervical spine stretch Sitting Exercise Name 1. scalenes, 2. upper traps w/ hand behind, 3. LS w/ overpressure Side right Reps/Minutes 2x30 ea Comments reports good feedback to stretching, charito at midback Standing Exercises bent over ITYW Side right Resistance AROM Reps/Minutes 10 ea with 2 hold Comments tactile and verbal cues for scapular control; Feels it but denies pain Manual Therapy Treatment Soft Tissue Mobilization R shoulder/paraspinals Body Location rhomboids, pec, rotator cuff, lat Mobilization Type Rolling,Strumming,Sustained Pressure Intensity/Depth Superficial Body Position Sidelying Comments Rhomboid, subscapularis and lat, rotator cuff tenderness and increased muscle restriction today. Good response to manual therapy. Performed trigger point release of lat/subscapularis and rhomboids. Palpable and observable muscle relaxation. good tolerance for superficial and non-stationary infraspinatus STM cervical spine Body Location UT, LS, paraspinals, suboccipitals Mobilization Type Rolling,Sustained Pressure, Trigger Point Release Intensity/Depth Moderate Body Position Sitting Comments Trigger points at UT and LS, less than previous session. Reduced with trigger point release. Moderate rolling of paraspinals, R>L tenderness and tightness. Spasms in suboccipitals, reduced with gentle soft tissue mobilization Joint Mobilizations scapulothoracic Joint R Direction add/retract, post setting Grade III Body Position Sidelying Reps/Duration 10 ea Comments Good tolerance to mobilization and then PROM, charito retraction /posterior shoulder setting. Educated on positioning for neuromuscular control, difficulty with AAROM after Self-Care/Home Management Treatment Education Patient Education Home Exercise Program,Pain Management,Posture Other Education Issued handout on ergonomics in sitting, driving HEP: miniband in supine, scalene stretch, bent over rows, bent over I, bent over T PT-OP-T Assessment and Plan Start: 08/01/23 09:32 Freq: Status: Active Protocol: Document 08/10/23 10:38 NM (Rec: 08/10/23 11:19 NM [id number]) Physical Therapy Assessment Goals Four Impairment HEP Short Term Goal (STG) Pt will report compliance with HEP at least 2-3x/wk in order to maximize progression with PT in order to promote independence with rehabilitation STG Duration 6 weeks Monitor And Storage Bin Tender Goal (LTG) Pt will report compliance with HEP at least 3x/wk in order to transition into maintenance program and improve activity tolerance LTG Duration 12 weeks Three Impairment function Snf Goal (LTG) Pt will report no increase in baseline pain with donning/ doffing shirt/jacket in order to demonstrate improved R shoulder ROM and functional ADLs LTG Duration 12 weeks Two Impairment strength Short Term Goal (STG) Pt will improve R periscapular strength to at least 4/5 MMT in order to demonstrate improved proximal strength for postural muscle control and to offload cervical spine STG Duration 6 weeks Snf Goal (LTG) Pt will improve R periscapular strength to at least 4+/5 MMT in order to demonstrate improved proximal strength for postural muscle control and to offload cervical spine LTG Duration 12 weeks One Impairment ROM Short Term Goal (STG) Pt will increase R cervical spine rotation to at least 60 deg in order to improve visual scanning during driving STG Duration 6 weeks Snf Goal (LTG) Pt will increase B cervical spine rotation to at least 70 deg in order to improve visual scanning during driving LTG Duration 12 weeks Assessment Summary Assessment Pt tolerated session well, reports no tingling and can move R arm better at end of session. Currenlty 150 deg flex without pain. Continues to have soft tissue restrictions of cervical paraspinals and periscapulars in addition to poor spinal mobility. Pt responds well to periscapular muscle activation with AROM and gentle isometrics. Cued for form and scapular control. Demos difficulty with coordinating control of scapula and has scapular winging. Initially responds well to stretching; however, pt reports increased awareness of muscle post stretching. Educated on ergonomic positions and sitting posture, especially when driving or working at his desk. Pt would benefit from skilled PT for spinal mobility and periscapular strengthening in order to manage symptoms and improve activity tolreance. Physical Therapy Plan Frequency and Duration Frequency of Treatment 1-2x/wk Duration of treatment (weeks) 12 Plan of Care Start Date 08/01/23 Plan of Care End Date 11/04/23 Therapeutic Interventions Therapeutic Interventions Balance Training,Gait Training ,Home Exercise Program,Joint Mobilizations,Manual Therapy, Neuromuscular Re-education, Patient/Caregiver Education, Self-Care/Home Management, Sensory Integration,Soft Tissue Mobilization,Taping, Therapeutic Activities, Therapeutic Exercises Modalities Cold Pack/Ice Massage,Hot Packs,Ultrasound Next Visit Focus/Plan Next Note Type Treatment Note Next Visit Plan 2 UNITS ONLY/SESSION Review bent over vs prone ITWY , trial Y lift off with wall, trial thread needle and snow angels. cont with MT/LT strengthening (prone vs kosovan ball vs standing or seated), gentle rows/low row progression if tolerated. Manual prn, focus on scapular control Disc hydrostatic management with towel, nerve glides, scapular mobility and control, thoracic ext/rot with shoulder flex Soft tissue mobilization/ mobilization with movement: neck, shoulder, mid back - gentle, thoracic and cervical mobilization
--- NOTE | 2023-08-15 15:31 | PT.OTN ---
Current Diagnoses Pain in unspecified shoulder (08/15/23) Weakness (08/15/23) Physical Therapy Treatment Note PT-OP-A Visit Information Start: 08/01/23 09:32 Freq: Status: Active Protocol: Document 08/15/23 14:37 NM (Rec: 08/15/23 15:30 NM [id number]) Out-Patient Physical Therapy Visit Information Visit Information Visit Type Discharge Summary Visit Note 24 units max 08/14 units Visit Start Time 14:37 Visit Stop Time 15:13 Visit Number 08/14 Evaluation Information Evaluation Date 08/01/23 PT-OP-B Current Condition Start: 08/01/23 09:32 Freq: Status: Active Protocol: Document 08/01/23 10:32 NM (Rec: 08/01/23 12:20 NM [id number]) Current Condition History of Current Condition Onset Date 10 weeks ago Current Complaints pain, tightness History of Current Condition Pt presents with recurring pain between shoulder blades and spine since he was a kid. Reports radiating to neck, arm pits, chest. Pt reports tingling in all 5 fingers but denies numbness. He has been to doctor who dx with either pinched nerve or gallbladder. He has had CT scans (benign liver cyst, kidney stones), x rays. Pt reports that he has had kidney stones before. 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 Pt reports that he has beginnings of carpal tunnel. 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 Pt denies CHARY, but states psychological stress 10 weeks ago (February 2023). Recent concussions (> 1 year ago) within 1 week, hit head in attic several times; got checked out by PCP. Pt reports clicking in the neck at base of skull when immobile (e.g. watching a show). Reports tingling in all 5 fingers to mid finger, reports only in AM after sleeping. Reports massage, tiger and dragon balm help, medication. Has chronic migraines. Usually gets tension headaches, which is what he thought was going to happen with this round. 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 He thinks he is re -concussed after hitting his head. Pt reports that he wants to discharge from PT today. States he has had more symptoms into his R arm ( numbness, tingling, pain) PT-OP-E Functional Tests Start: 08/01/23 09:32 Freq: Status: Active Protocol: Document 08/01/23 10:32 NM (Rec: 08/01/23 12:20 NM [id number]) Functional Tests Apley's Scratch Test Action 1- Left post cuff Action 1- Right post cuff Action 2- Left T4 Action 2- Right T3 Action 3- Left T8 Action 3- Right T9; tightness PT-OP-F Manual Assessment Start: 08/01/23 09:32 Freq: Status: Active Protocol: Document 08/01/23 10:32 NM (Rec: 08/01/23 12:20 NM [id number]) Manual Assessments Soft Tissue Assessment Soft Tissue Mobility Assessment Increased cervical paraspinal, lat tightness. Increased tone near R rhomboids. Joint Mobility Assessment Joint Mobility Assessment Right shoulder joint clicking PT-OP-H Neuro Start: 08/01/23 09:32 Freq: Status: Active Protocol: Document 08/01/23 10:32 NM (Rec: 08/01/23 12:20 NM [id number]) Sensation Evaluation Comments Summary Comments Will assess formally in future sessions PT-OP-J Posture/Palpation/Skin Start: 08/01/23 09:32 Freq: Status: Active Protocol: Document 08/01/23 10:32 NM (Rec: 08/01/23 12:20 NM [id number]) Posture Evaluation Position Standing Head/C-Spine Posture C-Spine Flattened L-Spine Posture Increased Lordosis Shoulder Posture (L) Rounded,(R) Rounded,(L) Forward,(R) Forward Scapula Posture (R) Protracted,(R) Elevated,(L ) Winged,(R) Winged Arm Posture (L) Internally Rotated,(R) Internally Rotated Pelvis Posture Anteriorly Tilted Weight Distribution Balanced Palpation Assessment Location cervicothoracic spine Palpation Details Increased muscle tightness No midline tenderness at spinous processes. Decreased joint mobility Tenderness along R facets, more upper than lower cervical R shoulder Palpation Details Tender over long head biceps tendon, pectoralis major across chest and sternum no tenderness over biceps muscle belly, rotator cuff PT-OP-K Range of Motion Start: 08/01/23 09:32 Freq: Status: Active Protocol: Document 08/15/23 14:34 NM (Rec: 08/15/23 15:31 NM [id number]) Cervical Spine Range of Motion Cervical Spine Active Degrees Flexion 55 Extension 45 Rotation Left 65 Rotation Right 58 Lateral Flexion Left 30 Lateral Flexion Right 25 Comments All R sided, flex, ext in neck . shoulder mid back Thoracic spine: limitations into rotation to R, no visible limitations into flexion/ extension/lateral flexion 08/15/23: 40 deg flex, 30 deg ext, R LF 20 deg, R rot 60 deg , L LF 35 deg, L rot 75 deg PT-OP-L Special Tests Start: 08/01/23 09:32 Freq: Status: Active Protocol: Document 08/01/23 10:32 NM (Rec: 08/01/23 12:20 NM [id number]) Special Tests Cervical Spine Special Tests Passive Neck Flexion Test Results + Comments worse with R rot Upper Limb Tension Test Test Results + Comments median and radial nn. Vertebral Artery Test Results - Traction Test Results + Transverse Ligament Test Results - Alar Ligament Test Results - Spurling's Test Test Results + Comments R Shoulder Special Tests Drop Arm Rotator Cuff Test Results - External Rotation Lag Sign Test Results - [place] Niko Impingement Test Results + Yergason's Biceps Test Results - Speed's Biceps Test Results + Empty Can Test Results - PT-OP-M Strength Start: 08/01/23 09:32 Freq: Status: Active Protocol: Document 08/15/23 14:34 NM (Rec: 08/15/23 15:31 NM [id number]) Cervical Spine Strength Cervical Spine Manual Muscle Testing Flexion (C1-2) 4- Good- Extension 4 Good Rotation Left 4 Good Rotation Right 4 Good Lateral Flexion Left (C3) 4 Good Lateral Flexion Right (C3) 4 Good Scapula Strength Scapula Manual Muscle Testing Right Elevation (C4) 4- Good- Adduction 4- Good- Abduction 4- Good- Depression 4- Good- PT-OP-Q Treatments Start: 08/01/23 09:32 Freq: Status: Active Protocol: Document 08/15/23 14:37 NM (Rec: 08/15/23 15:30 NM [id number]) Therapeutic Exercises Sitting Exercises cervical retraction Reps/Minutes 10x2 hold Comments pain free, feels it behind head; cued initially for form cervical spine isometrics Sitting Exercise Name flexion, extension, lateral flexion, rotation Side bilateral Reps/Minutes 5x5 Comments pain free; cued for form Standing Exercises bent over ITYW Standing Exercise Name bent over I,T, Y<>W lift off at wall Side right Resistance AROM Reps/Minutes 10 ea with 2 hold for IT, YW 1x5 Comments fatiguing; limited shoulder ext ROM d/t tingling (less rom = gone) Other Exercises self soft tissue mobilization Other Exercise Name mobilization with movement of lat, rhomboids w/ shoulder flex/abd Side right Equipment Used theracane Reps/Minutes 2 minutes Comments reports symptom reduction Manual Therapy Treatment Soft Tissue Mobilization R shoulder/paraspinals Body Location rhomboids, pec, rotator cuff, lat Mobilization Type Rolling,Strumming,Sustained Pressure Intensity/Depth Superficial Body Position seated Comments Rhomboid, subscapularis and lat, rotator cuff tenderness and increased muscle restriction today. Performed trigger point release of lat/ subscapularis and rhomboids. Palpable and observable muscle relaxation. Educated on soft tissue mobilization with theracane at home (pt plans to purchase) cervical spine Body Location UT, LS, paraspinals, suboccipitals Mobilization Type Rolling,Sustained Pressure, Trigger Point Release Intensity/Depth Moderate Body Position Sitting Comments Trigger points at UT and LS. Reduced with trigger point release. Moderate rolling of paraspinals, R>L tenderness and tightness. Spasms in suboccipitals, reduced with gentle soft tissue mobilization PT-OP-T Assessment and Plan Start: 08/01/23 09:32 Freq: Status: Active Protocol: Document 08/15/23 14:37 NM (Rec: 08/15/23 15:30 NM [id number]) Physical Therapy Assessment Goals Four Impairment HEP Short Term Goal (STG) Pt will report compliance with HEP at least 2-3x/wk in order to maximize progression with PT in order to promote independence with rehabilitation STG Duration 6 weeks Curing Press Operator Goal (LTG) Pt will report compliance with HEP at least 3x/wk in order to transition into maintenance program and improve activity tolerance 08/15/23: Pt performing HEP 3x/ wk LTG Duration 12 weeks MET Three Impairment function Detention Goal (LTG) Pt will report no increase in baseline pain with donning/ doffing shirt/jacket in order to demonstrate improved R shoulder ROM and functional ADLs 08/15/23: pt reports minimal pain with dressing at R shoulder LTG Duration 12 weeks NOT MET Two Impairment strength Short Term Goal (STG) Pt will improve R periscapular strength to at least 4/5 MMT in order to demonstrate improved proximal strength for postural muscle control and to offload cervical spine STG Duration 6 weeks Curing Press Operator Goal (LTG) Pt will improve R periscapular strength to at least 4+/5 MMT in order to demonstrate improved proximal strength for postural muscle control and to offload cervical spine 08/15/23: initiated periscapular AROM, pt able to perform 5 reps before fatiguing LTG Duration 12 weeks NOT MET One Impairment ROM Short Term Goal (STG) Pt will increase R cervical spine rotation to at least 60 deg in order to improve visual scanning during driving 08/15/23: R cervical ROM 60 deg , L 75 deg STG Duration 6 weeks MET Curing Press Operator Goal (LTG) Pt will increase B cervical spine rotation to at least 70 deg in order to improve visual scanning during driving 08/15/23: R cervical ROM 60 deg , L 75 deg LTG Duration 12 weeks PARTIALLY MET Progress Towards Goals Progress Towards Goals Progressing Toward Goals,Slow Progress due to Activity Tolerance,Slow Progress due to Attendance Issues,Goals Met Assessment Summary Assessment Pt tolerated session well despite increase in pain levels and significant muscle tightness. PT educated pt on symptoms of concussion, especially emergent symptoms, and recommended pt follow up with PCP at upcoming visit due to hx of concussions. Pt responds well but fatigues very quickly with cervical isometrics and periscapular strengthening. Pt has no numbness or tingling with exercises when performed within limited ROM. He has limitations in scapular control and periscapular strength, which influence symptoms especially when combined with forward head/ rounded shoulders posture. Educated extensively on ergonomics, safety during job/ driving, and compliance with maintenance HEP as pt is improving with exercises Physical Therapy Plan Frequency and Duration Frequency of Treatment 1-2x/wk Duration of treatment (weeks) 12 Plan of Care Start Date 08/01/23 Plan of Care End Date 11/04/23 Therapeutic Interventions Therapeutic Interventions Balance Training,Gait Training ,Home Exercise Program,Joint Mobilizations,Manual Therapy, Neuromuscular Re-education, Patient/Caregiver Education, Self-Care/Home Management, Sensory Integration,Soft Tissue Mobilization,Taping, Therapeutic Activities, Therapeutic Exercises Modalities Cold Pack/Ice Massage,Hot Packs,Ultrasound Discharge Physical Therapy Discharge Reasons Patient Request Discharge Comments Pt requesting discharge from PT due to finances, wants to move to [facility] Next Visit Focus/Plan Next Visit Plan Discharge from PT services
== END 2023-08-16 08:50 | disposition home or self-care (01) ==
LOC: PHYS 14:30
PROVIDERS: Family Provider Student in an Organized Health Care Education/Training Program; PCP Student in an Organized Health Care Education/Training Program; Referring Provider Student in an Organized Health Care Education/Training Program; Visit Provider Student in an Organized Health Care Education/Training Program
DX: M25.519 Pain in unspecified shoulder (principal); R53.1 Weakness
CPT/HCPCS: 97110; 97140; 97162

== ENCOUNTER → 2024-07-07 13:38 | Outpatient (CLI) | payer OTHER, SELFPAY ==
--- NOTE | 2024-07-07 13:39 | DI.ECHO.S_ITS ---
[facility]---------+ [facility] : : [address] : : [place] : : [id number] : : Phone: [phone] Echocardiogram Report + + :Name: JORGE JEWELL Study Date: 07/07/2024 Height: 69.5 in: :[facility] ReadingLocation: Weight: 205 lb : : Gender: Male BSA: 2.1 m2 : :: 1975 Age: 49 yrs BP: 116/78 mmHg: :Reason For Study: EVAL AND TREAT HEART MURMUR : :Ordering Physician: MARIA C, : :MELANY Performed By: Tiffanie Castellanos : :Referring: MELANY LOMBARDI : + + Interpretation Summary The ejection fraction is estimated to be 60-65%. Diastolic parameters suggest probable normal left ventricular diastolic function and normal filling pressures. The right ventricle is normal in size and function. There is mild mitral regurgitation. There is mild tricuspid regurgitation. The right ventricular systolic pressure is estimated to be at least 23 mmHg based on an estimated right atrial pressure of 3 mm Hg. Procedure: A two-dimensional transthoracic echocardiogram with color flow and Doppler was performed. The study quality was technically adequate. There is no prior echocardiogram noted for this patient. The heart rate ranged between 58-66 bpm during the study. Left Ventricle: The left ventricle is normal in size and wall thickness. The ejection fraction is estimated to be 60-65%. Diastolic parameters suggest probable normal left ventricular diastolic function and normal filling pressures. Right Ventricle: The right ventricle is normal in size and function. Atria: The left atrial size is normal. Right atrial size is normal. There is no Doppler evidence for an interatrial shunt. Mitral Valve: The mitral valve leaflets appear to open well. There is mild mitral regurgitation. Aortic Valve: The aortic valve opens well. The aortic valve is trileaflet. There is no aortic valve stenosis. There is trace aortic regurgitation. Tricuspid Valve: The tricuspid valve leaflets are thin and pliable. There is mild tricuspid regurgitation. The right ventricular systolic pressure is estimated to be at least 23 mmHg based on an estimated right atrial pressure of 3 mm Hg. Pulmonic Valve: The pulmonic valve leaflets are thin and pliable; valve motion is normal. There is no pulmonic valvular regurgitation. Great Vessels: The aortic root is normal size. The dimensions of the ascending aorta are normal. The IVC is of normal diameter and collapses greater than 50% with a sniff. This suggests a low right atrial pressure of 3 mm Hg. Pericardium/ Pleura There is no pericardial effusion. There is no pleural effusion. MMode/2D Measurements & Calculations LVIDd: 4.9 cm LVOT diam: 2.0 cm LVIDs: 3.3 cm Ao root diam: 3.0 cm FS: 31.5 % asc Aorta Diam: 3.3 cm EPSS: 0.41 cm Ao Arch Diam (Prox Trans): 2.8 cm IVSd: 1.0 cm LVPWd: 0.71 cm LV murry. diameter/BSA (cm/m^2): 2.3 LV sys. diameter/BSA (cm/m^2): 1.6 LA A2 area: 13.8 cm2 RA long axis: 4.5 cm LA A4 area: 12.2 cm2 RA area: 13.0 cm2 LA length (vol): 4.2 cm RA vol: 32.4 ml LA vol: 34.1 ml RA : 15.4 ml/m2 LA vol index: 16.2 ml/m2 IVC diam: 1.0 cm RVD1 (basal): 3.6 cm TAPSE: 1.9 cm Doppler Measurements & Calculations Ao V2 max: 165.2 cm/sec LVOT Max Murali: 121.3 cm/sec Ao V2 mean: 114.7 cm/sec LV V1 max P.9 mmHg Ao max P.9 mmHg LV V1 VTI: 23.1 cm Ao mean P.8 mmHg KAYCEE(I,D): 2.2 cm2 Ao V2 VTI: 32.1 cm KAYCEE(V,D): 2.2 cm2 sev ratio: 0.72 KAYCEE indexed to BSA (cm^2/m^2): 1.0 MV E max murali: 70.9 cm/sec TR max murali: 221.5 cm/sec MV A max murali: 51.9 cm/sec TR max P.6 mmHg MV E/A: 1.4 PA V2 max: 101.7 cm/sec Med Peak E' Murali: 8.4 cm/sec PA V2 mean: 66.5 cm/sec E/E' med: 8.4 PA mean P.1 mmHg Lat Peak E' Murali: 11.7 cm/sec PA pr(Accel): 35.3 mmHg E/E' lat: 6.0 E/e' average: 7.2 MV dec time: 0.18 sec SV(LVOT): 69.3 ml Reading Physician:09:24 PM
== END ==
LOC: ECHO 13:38
PROVIDERS: Family Provider Student in an Organized Health Care Education/Training Program; PCP Student in an Organized Health Care Education/Training Program; Referring Provider Student in an Organized Health Care Education/Training Program; Visit Provider Student in an Organized Health Care Education/Training Program
DX: I08.1 Rheumatic disorders of both mitral and tricuspid valves (principal); R01.1 Cardiac murmur, unspecified
CPT/HCPCS: 93306

== ENCOUNTER → 2024-08-06 07:52 | Outpatient (CLI) | payer OTHER, SELFPAY ==
[2024-08-06 08:42] LABS: Hematocrit 46.2 % (41-53); Hemoglobin 15.9 g/dL (13.5-17.5); Mean Corpuscular HGB Conc 34.4 % (30-36); Mean Corpuscular Volume 87.2 fL (80-100); Platelet Count 189 X10^3/uL (150-400); Red Cell Distribution Width 13.8 % (11.6-14.8); White Blood Cell Count 6.4 X10^3/uL (4.5-11.0)
[2024-08-06 09:08] LABS: Alanine Aminotransferase 32 IU/L (<50); Albumin 4.5 g/dL (3.5-5.0); Albumin Globulin Ratio 1.4 (1.0-2.8); Alkaline Phosphatase 96 U/L (38-126); Aspartate Aminotransferase 28 IU/L (17-59); BUN Creatinine Ratio 17.4 (6-22); Bilirubin Total 0.7 mg/dL (0.2-1.3); Blood Urea Nitrogen 20 mg/dL (9-20); Calcium 9.4 mg/dL (8.4-10.2); Carbon Dioxide 26 mmol/L (22-32); Chloride 109 mmol/L (98-107); Cholesterol 230 mg/dL (140-199); Estimated Glomerular Filt Rate > 60 mL/min (>60); Globulin 3.2 g/dL (1.7-4.1); Glucose 102 mg/dL (70-99); HDL Cholesterol 43 mg/dL (40-60); HEMOLYSIS < 15 (0-50); LDL Cholesterol Calculated 165 mg/dL (<100); Potassium 4.3 mmol/L (3.4-5.1); Sodium 144 mmol/L (137-145); Total Protein 7.7 g/dL (6.3-8.2); Triglycerides 111 mg/dL (35-150)
[2024-08-06 09:30] LABS: Neutrophils Absolute Manual 4544 /uL (3000-5900); Total Cells Counted 100
[2024-08-06 09:32] LABS: Platelet Estimate Adequate on smear; RBC Morphology Normal Morphology
== END ==
PROVIDERS: PCP Student in an Organized Health Care Education/Training Program; Referring Provider Student in an Organized Health Care Education/Training Program; Visit Provider Student in an Organized Health Care Education/Training Program
DX: I10 Essential (primary) hypertension (principal); N52.9 Male erectile dysfunction, unspecified
CPT/HCPCS: 36415; 80053; 80061; 84402; 84403; 84439; 84443; 85025

== ENCOUNTER → 2024-08-13 10:54 | Outpatient (CLI) | payer OTHER, SELFPAY ==
--- NOTE | 2024-08-13 10:56 | DI.CT.S_ITS ---
PROCEDURE: CT IVP A/P W/WO INDICATIONS: 49 y/o M w/ gross hematuria, eval upper tracts TECHNIQUE: Optional 5 mm thick noncontrast images acquired from the diaphragm to the symphysis pubis. After the administration of intravenous contrast, 5 mm thick images acquired from the diaphragm to the symphysis pubis after a 10-minute delay. 2 mm thick coronal and sagittal reformats were then performed of the kidneys and ureters. For radiation dose reduction, the following was used: automated exposure control, adjustment of mA and/or kV according to patient size. COMPARISON: None. FINDINGS: Image quality: Diagnostic. Kidneys and Ureters: Both kidneys are normal in size. No hydronephrosis. 7 millimeter stone in the right renal pelvis, nonobstructing. 7 millimeter stone in the left renal pelvis, nonobstructing. No perinephric fat stranding. There is normal bilateral renal enhancement. Renal calyces appear normal in morphology when filled with contrast. Opacified portions of both ureters demonstrate normal caliber Bladder: Bladder wall thickness is normal. No calcified bladder stones. OTHER: Lower chest: Unremarkable. Liver: No solid mass. Gallbladder: No radiopaque gallstones or wall thickening. Biliary ducts: No biliary dilation. Pancreas: No ductal dilation. Spleen: Size is within normal limits. Adrenal Glands: No adrenal nodules. Stomach and Bowel: Normal colonic caliber, without significant wall thickening. Peritoneum: No abnormal intraperitoneal fluid. No free air. Ventral Wall: No hernia. Abdominal Nodes: No retroperitoneal or mesenteric adenopathy by size criteria. Vessels: Aorta and inferior vena cava are normal in size. PELVIS: Pelvic Organs: Unremarkable. Pelvic Nodes: No enlarged lymph nodes. Miscellaneous: Moderate indirect inguinal hernias containing. Bones: No aggressive osseous abnormality. IMPRESSION: Bilateral 7 millimeter nonobstructing nephrolithiasis. Otherwise, no filling defects within the opacified renal collecting systems. Dictated by: Javier Noguera M.D. on 08/13/2024 at 12:40 Approved by: Javier Noguera M.D. on 08/13/2024 at 12:44
== END ==
LOC: CT 10:55
PROVIDERS: PCP Student in an Organized Health Care Education/Training Program; Referring Provider Urology; Visit Provider Urology
DX: N20.0 Calculus of kidney (principal); R31.0 Gross hematuria; K40.90 Unilateral inguinal hernia, without obstruction or gangrene, not specified as recurrent; Z87.442 Personal history of urinary calculi
CPT/HCPCS: 74178; Q9967